=== PATIENT | female | born 1995 | race Caucasian/White ===

== ENCOUNTER 2023-10-23 13:26 | Outpatient (OUT) | payer MEDICAID, SELFPAY ==
--- NOTE | 2023-10-23 | US_ITS ---
[address] [address] Patient Name: VITO WHEAT MRN: [id number] date: 1995 Sex: F Assigned Patient Location: US Current Patient Location: US Accession/Order Number: [id number] Exam Date: 10/23/2023 13:28 Report Date: 10/23/2023 15:00 At the request of: CORA PEACE Procedure: US OB transvaginal EXAMINATION: US OB transvaginal HISTORY: MISSED MENSES COMPARISON: No relevant comparison available. FINDINGS: Lugo intrauterine gestation Gestational sac: 5.2 cm, 11 weeks 0 days CRL: 4.6 cm, 11 weeks 3 days Yolk sac: 3.6 mm Heart rate: 176 bpm The uterus is normal, anteflexed The ovaries are normal The cervix is closed measuring 4.0 cm Clinical age: 10 weeks 4 days Clinical NICOLE: 05/16/2024 Ultrasound age: 11 weeks, 3 days Clinical NICOLE: 05/10/2024 US/US OB transvaginal IMPRESSION: Viable lugo intrauterine gestation measuring 11 weeks 3 days Electronically authenticated by: JIMBO LEMON Date: 10/23/2023 15:00
--- OUTSIDE RECORDS SUMMARY | 2023-11-05 03:32 | XMS_ITS | CCD ---
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 Name Role Phone DayAlmasChristiane Unavailable Medications Current Medications Medication Drug Class(es) Dates Sig (Normalized) Sig (Original) amoxicillin 875 mg oral tablet (1 source) Penicillin-class Antibacterial Start: 11-21-2022 take 1 tablet by mouth every twelve hours Amoxicillin 875 MG 1 tablet Orally every 12 hrs for 7 days Nov, Active Problems Problem Classification Problem Date Documented Da te Episodic/Chronic Chronic obstructive pulmonary disease and bronchiectasis (1 source) Bronchitis, not specified as acute or chronic Episodic Immunizations and screening for infectious disease (2 sources) Contact with and (suspected) exposure to other viral communicable diseases; Translations: [Contact with and (suspected) exposure to other viral communicable diseases] Episodic Otitis media and related conditions (1 source) Otitis media, unspecified, left ear Episodic Results Test Name Value Interpretation Reference Range Facil ity COVID + FLU Quick Testingon 11-21-2022 SARS-CoV-2 (COVID-19) RNA NA A+probe Ql (Unsp spec) Negative [facility] [employer] Other COVID + FLU Quick Testing Negative [facility] Other Quick Strepon 11-21-2022 S. pyogenes Org specific cx Ql (Throat) Negative [facility] [employer] Other Quick Strep [facility] Other Vital Signs Date Time Vital Sign Value Performing Clinician Facility 11-21-2022 18:45-0500 Body height 165.1 cm Christiane Bernstein Other [facility] Other 11-21-2022 18:45-0500 Body mass index (BMI) [Ratio] 23.29 kg/m2 Christiane Bernstein Other [facility] Other 11-21-2022 18:45-0500 Body temperature 98 [degF] Christiane Bernstein Other [facility] Other 11-21-2022 18:45-0500 Body weight 63.5 kg Christiane Bernstein Other [facility] Other 11-21-2022 18:45-0500 Diastolic blood pressure 82 mm[Hg] Christiane Stevensonault Other [facility] Other 11-21-2022 18:45-0500 Respiratory rate 16 /min Christiane Stevensonault Other [facility] Other 11-21-2022 18:45-0500 SaO2% (BldA) [Mass fraction] 100 % Christiane Bernstein Other [facility] Other 11-21-2022 18:45-0500 Systolic blood pressure 114 mm[Hg] Christiane Stevensonault Other [facility] Other Encounters Encounter Date Encounter Type Care Provider Facility Start: 10-23-2023 End: 10-23-2023 ambulatory Not Available Start: 11-21-2022 End: 11-21-2022 ambulatory Christiane Bernstein Other [facility] Other Start: 11-21-2022 Office outpatient visit 25 minutes Christiane Day [facility] Payers Date Payer Category Payer Medicaid [id number] 1995 Unknown [id number] Social History Date Type Detail Facility Sex Assigned At [facility] Other Evaluation note 11-21-2022 Note Date & Type Note Facility 11-21-2022 Evaluation note Encounter Date Diagnosis Assessment Notes Nov, Contact with and (suspected) exposure to other viral communicable diseases (ICD-10 - Z20.828) Nov, Left acute otitis media (ICD-10 - H66.92) Ear infections are often a secondary infection caused from an URI, the flu or allergies. Take medication as directed. Complete all doses, even if you feel better. Tylenol or ibuprofen can help with pain. Warm pack to area for comfort helps as well. Follow up with primary care provider if no improvement of symptoms. Nov, Bronchitis (ICD-10 - J40) Take medications as directed. Rest and increase fluid intake. Take meds with food to prevent stomach upset. Use inhaler as needed for coughing spells and SOB. It is better to use inhaler a few times a day over the next 2-3 days. Follow up with primary care provider if symptoms do not improve with treatment plan, although it may take a few weeks for the cough to go away [facility] Other Summary Purpose Family History No Family History Records Found Advance Directives No Advanced Directives Records Found Additional Source Comments REASON FOR VISIT (unrecogniz ed section and content) CONGESTION SORE THROAT COUGH INFORMATION SOURCE (unrecogn ized section and content) DATE CREATED AUTHOR 10/25/2023 [facility] dicma Specialists [facility] FOR RECORDS PERTAINING TO PATIENTS WHO ARE OR HAVE BEEN ENROLLED IN A CHEMICAL DEPENDENCY/SUBSTANCEABUSE PROGRAM, SOME INFORMATION MAY BE OMITTED. This clinical summary was aggregated from multiple sources. Caution should be exercised in using it in the provision of clinical care. This summary normalizes information from multiple sources, and as a consequence, information in this document may materially change the coding, format and clinical context of patient data. In addition, data may be omitted in some cases. CLINICAL DECISIONS SHOULD BE BASED ON THE PRIMARY CLINICAL RECORDS. [facility] [employer] provides no warranty or guarantee of the accuracy or completeness of information in this document.
== END 2023-10-23 13:27 | disposition home or self-care (01) ==
LOC: US 13:27
PROVIDERS: Visit Provider Obstetrics & Gynecology
DX: Z34.91 Encounter for supervision of normal pregnancy, unspecified, first trimester (principal); N92.6 Irregular menstruation, unspecified; Z3A.11 11 weeks gestation of pregnancy
CPT/HCPCS: 76817

== ENCOUNTER 2023-10-27 12:42 | Outpatient (OUT) | payer MEDICAID, SELFPAY ==
[2023-10-27 13:18] LABS: BOX Test Sent Out Y
[2023-10-27 13:21] LABS: Basophils Absolute Auto 0.1 10^3/uL (0.0-0.1); Basophils Percent Auto 0.5 % (0.2-2.0); Eosinophils Absolute Auto 0.1 10^3/uL (0.0-0.7); Hemoglobin 12.5 g/dL (12.0-16.0); Immature Granulocytes Abs Auto 0.02 10^3/uL (0.00-0.03); Immature Granulocytes Pct Auto 0.2 % (0.0-0.5); Lymphocytes Absolute Auto 2.5 10^3/uL (1.2-3.8); Lymphocytes Percent Auto 25.1 % (20.5-60.0); Mean Corpuscular HGB Conc 32.9 g/dL (29.9-35.2); Mean Corpuscular Hemoglobin 30.8 pg (26.7-34.0); Mean Corpuscular Volume 93.6 fL (81.0-99.0); Mean Platelet Volume 11.4 fL (9.5-13.5); Monocytes Absolute Auto 0.4 10^3/uL (0.3-0.8); Monocytes Percent Auto 3.7 % (1.7-12.0); Neutrophils Absolute Auto 7.1 10^3/uL (1.4-6.5); Neutrophils Percent Auto 69.5 % (43.0-75.0); Platelet Count 217 10^3/uL (150-450); Red Blood Count 4.06 10^6/uL (4.20-5.40); Red Cell Distribution Width 12.5 % (11.0-15.0); White Blood Count 10.1 10^3/uL (4.0-11.0)
[2023-10-27 13:45] LABS: Estimated Average Glucose 85 mg/dL; Glycohemoglobin A1C 4.6 % (4.5-6.2)
[2023-10-27 13:55] LABS: Thyroid Stimulating Hormone 1.066 uIU/mL (0.358-3.740)
[2023-10-28 08:13] LABS: HBsAg Screen Negative (Negative)
[2023-10-28 09:11] LABS: HCV Ab Non Reactive (Non Reactive); Rubella Antibodies, IgG 6.43 index (Immune >0.99)
[2023-10-28 12:09] LABS: HIV Ab/p24 Ag Screen Non Reactive (Non Reactive)
[2023-10-28 13:08] LABS: Rapid Plasma Reagin, Quant Non Reactive titer (NonRea<1:1)
== END 2023-10-27 12:43 | disposition home or self-care (01) ==
LOC: LAB 12:42
PROVIDERS: Visit Provider Obstetrics & Gynecology
DX: N92.6 Irregular menstruation, unspecified (principal); Z36.0 Encounter for antenatal screening for chromosomal anomalies
CPT/HCPCS: 36415; 83036; 84443; 85025; 86592; 86762; 86803; 86850; 86900; 86901; 87086; 87340; 87389

== ENCOUNTER 2023-11-25 19:25 | Outpatient (REF) | payer MEDICAID, SELFPAY ==
--- OUTSIDE RECORDS SUMMARY | 2023-11-25 19:28 | XMS_ITS | CCD ---
Author Name Unknown Address [address] [facility] [address] [place] [address] Organization [facility] Care Team Providers Care Aluminizer Name Role Phone DayAlmasChristiane Unavailable Medications Current [...] FLU Quick Testingon 11-21-2022 SARS-CoV-2 (COVID-19) RNA DANNA+probe Ql (Unsp spec) Negative [facility] [employer] Other COVID + FLU Quick Testing Negative [facility] [employer] Other Quick Strepon 11-21-2022 S. pyogenes Org specific cx Ql (Throat) Negative [facility] [employer] Other Quick Strep [facility] [employer] Other Vital Signs Date Time Vital Sign Value Performing Clinician Facility 11-21-2022 18:45-0500 Body height 165.1 cm Christiane Bernstein Other [address] Other 11-21-2022 18:45-0500 Body mass index (BMI) [Ratio] 23.29 kg/m2 Christiane Bernstein Other [address] Other 11-21-2022 18:45-0500 Body temperature 98 [degF] Christiane Stevensonault Other [address] Other 11-21-2022 18:45-0500 Body weight 63.5 kg Christiane Stevensonault Other [address] Other 11-21-2022 18:45-0500 Diastolic blood pressure 82 mm[Hg] Christiane Stevensonault Other [address] Other 11-21-2022 18:45-0500 Respiratory rate 16 /min Christiane Stevensonault Other [address] Other 11-21-2022 18:45-0500 SaO2% (BldA) [Mass fraction] 100 % Christiane Stevensonault Other [address] Other 11-21-2022 18:45-0500 Systolic blood pressure 114 mm[Hg] Christiane Stevensonault Other [address] Other Encounters Encounter Date Encounter Type Care Provider Facility Start: 10-23-2023 End: 10-23-2023 ambulatory Not Available Start: 11-21-2022 End: 11-21-2022 ambulatory Christiane Stevensonault Other [address] Other Start: 11-21-2022 Office outpatient visit 25 minutes Christiane Day [facility] Payers Date Payer Category Payer Medicaid [id number] 1995 Unknown [id number] Social History Date Type Detail Facility Sex Assigned At [address] Other Evaluation note 11-21-2022 Note Date & [...] weeks for the cough to go away [facility] [address] Other Summary Purpose Family History No Family History Records Found Advance Directives No Advanced Directives Records Found Additional Source Comments REASON FOR VISIT (unrecogniz ed section and content) CONGESTION SORE THROAT COUGH INFORMATION SOURCE (unrecogn ized section and content) DATE CREATED AUTHOR 10/25/2023 [facility] dicnh Specialists [facility] FOR RECORDS PERTAINING TO PATIENTS WHO [...] BE BASED ON THE PRIMARY CLINICAL RECORDS. [facility] [employer] provides no warranty or guarantee of the accuracy or completeness of information in this document.
[2023-12-01 13:11] LABS: Age Gdln ACOG Testing Note (.); IGP, rfx Aptima HPV ASCU Note (.)
== END 2023-11-25 19:26 | disposition home or self-care (01) ==
LOC: LAB 19:25
PROVIDERS: Visit Provider Obstetrics & Gynecology
DX: Z01.419 Encounter for gynecological examination (general) (routine) without abnormal findings (principal)
CPT/HCPCS: G0145

== ENCOUNTER 2023-12-08 10:47 | Outpatient (OUT) | payer MEDICAID, SELFPAY ==
--- OUTSIDE RECORDS SUMMARY | 2023-12-08 10:54 | XMS_ITS | CCD ---
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 Name Role Phone Christiane Bernstein Unavailable CORA PEACE Attending Unavailable KAILEE YOUNGBLOOD Primary Care Unavailable MARIKA MCELROY Attending Unavailable Medications Current Medications Medication Drug Class(es) [...] exposure to other viral communicable diseases] Episodic Influenza (1 source) Influenza due to other identified influenza virus with other respiratory manifestations; Translations: [Influenza due to other identified influenza virus with other respiratory manifestations] Onset: 11-28-2023 Episodic Otitis media and related conditions (1 source) Otitis media, unspecified, left ear Episodic Unclassified (1 source) Cold Like Symptoms Onset: 11-28-2023 Unclassified (1 source) Cough, Congestion Onset: 11-28-2023 Results Test Name Value Interpretation Reference Range Facil ity SARS/FLU A+B/RSV by NAAT/Mol ecularon 11-28-2023 SARS/FLU A+B/RSV by NAAT/Molecular FLU A PCR Negative (qualifier value) FLU B PCR Positive (qualifier value) RSV by PCR Negative (qualifier value) SARS CoV 2 Not detected (qualifier value) NOTE The Xpert Xpress SARS-CoV-2/Flu/RSV Plus test is a rapid, multiplexed real-time RT-PCR test intended for the simultaneous qualitative detection and differentiation of SARS-CoV-2, influenza A, influenza B and respiratory syncytial virus (RSV) viral RNA from individuals suspected of respiratory viral infection consistent with COVID-19 by their healthcare provider. This test has not been validated in asymptomatic patients. The Xpert Xpress SARS-CoV-2 test is intended for use by qualified and trained operators who are performing tests using either [employer] or [employer] systems and is limited to laboratories that meet the CLIA requirements to perform high and moderate complexity tests. The Xpert Xpress SARS-CoV-2/Flu/RSV Plus is only for use under the Food and Drug Administration's Emergency Use Authorization. Results are for the simultaneous detection and differentiation of SARS-CoV-2, influenza A, influenza B and RSV nucleic acids in clinical specimens. SARS-CoV-2, influenza A, influenza B and RSV RNA identified by this test are generally detectable in upper respiratory samples during the acute phase of infection. Positive results are indicative of the presence of the identified virus, but do not rule out bacterial infection or co-infection with other pathogens not detected by this test. Clinical correlation with patient history and other diagnostic information is necessary to determine patient infection status. The agent detected may not be the definite cause of disease. Negative results do not preclude SARS-CoV-2, influenza A, influenza B and RSV infection and should not be used as the sole basis for treatment or other patient management decisions. Negative results must be combined with clinical observations, patient history and epidemiological information. An Invalid result may occur with specimen-associated inhibition unable to be resolved with specimen repeat. Fact Sheet for Healthcare Providers: https://www.fda.gov/m edia/278576/download Fact Sheet for Patients: https://www.fda.gov/m edia/895916/download Normal [facility] Comment on above: Performed By: #### COVFLR #### [facility] ([id number]) [address] [place] [address], [place] [address] COVID + FLU Quick Testingon 11-21-2022 SARS-CoV-2 (COVID-19) RNA DANNA+probe Ql (Unsp spec) Negative [employer] Other COVID + FLU Quick Testing Negative [employer] Other Quick Strepon 11-21-2022 S. pyogenes Org specific cx Ql (Throat) Negative [employer] Other Quick Strep [employer] Other Vital Signs Date Time Vital Sign Value Performing Clinician Facility 11-21-2022 18:45-0500 Body height 165.1 cm Christiane Stevensonault Other [employer] Other 11-21-2022 18:45-0500 Body mass index (BMI) [Ratio] 23.29 kg/m2 Christiane Day Other [employer] Other 11-21-2022 18:45-0500 Body temperature 98 [degF] Christiane Day Other [employer] Other 11-21-2022 18:45-0500 Body weight 63.5 kg Christiane Stevensonault Other [employer] Other 11-21-2022 18:45-0500 Diastolic blood pressure 82 mm[Hg] Christiane Day Other [employer] Other 11-21-2022 18:45-0500 Respiratory rate 16 /min Christiane Day Other [employer] Other 11-21-2022 18:45-0500 SaO2% (BldA) [Mass fraction] 100 % Christiane Day Other [employer] Other 11-21-2022 18:45-0500 Systolic blood pressure 114 mm[Hg] Christiane Bernstein Other [employer] Other Encounters Encounter Date Encounter Type Care Provider Facility Start: 11-28-2023 End: 11-28-2023 Emergency department patient visit KAILEE YOUNGBLOOD [facility] Start: 11-25-2023 End: 11-25-2023 ambulatory CORA BELCHERO Not Available Start: 10-23-2023 End: 10-23-2023 ambulatory CORA NATA Not Available Start: 11-21-2022 End: 11-21-2022 ambulatory Christiane Day Other [employer] Other Start: 11-21-2022 Office outpatient visit 25 minutes Christiane Bernstein [facility] Payers Date Payer Category Payer Medicaid [id number] 1995 Unknown [id number] 1995 Unknown [id number] 1995 Unknown [id number] Social History Date Type Detail Facility Sex Assigned At [facility] [employer] Other Evaluation note 11-21-2022 Note Date & [...] weeks for the cough to go away [employer] Other Summary Purpose Family History No Family History Records FoundNo Family History Records Found Advance Directives No Advanced Directives Records FoundNo Advanced Directives Records Found Additional Source Comments REASON FOR VISIT (unrecogniz ed section and content) CONGESTION SORE THROAT COUGH INFORMATION SOURCE (unrecogn ized section and content) DATE CREATED AUTHOR 11/26/2023 [facility] dical Specialists EPIC DATE CREATED AUTHOR AUTHOR'S ORGANIZ ATION 11/30/2023 [facility] FOR RECORDS PERTAINING TO PATIENTS WHO ARE [...] BE BASED ON THE PRIMARY CLINICAL RECORDS. [employer] provides no warranty or guarantee of the accuracy or completeness of information in this document.
[2023-12-10 00:07] LABS: AFP Value 53.1 ng/mL (.); Gestat. Age Based On As provided (.); Insulin Dep Diabetes No (.); Maternal Age At EDD 26.6 yr (.); OSBR Risk 1 IN 8106 (.); Results Report (.)
== END 2023-12-08 10:48 | disposition home or self-care (01) ==
LOC: LAB 10:50
PROVIDERS: Visit Provider Obstetrics & Gynecology
DX: Z34.92 Encounter for supervision of normal pregnancy, unspecified, second trimester (principal)
CPT/HCPCS: 36415; 82105

== ENCOUNTER 2024-01-10 06:50 | Emergency (ER) | payer MEDICAID, SELFPAY ==
[2024-01-10 06:58] VITALS: BP 114/77; PULSE 85; RESP 18; TEMP 36.9; O2SAT 98; BMI 24.0
--- OUTSIDE RECORDS SUMMARY | 2024-01-10 06:58 | XMS_ITS | CCD ---
Author Name Unknown Address [address] [place] [address] Organization [facility] Care Team Providers Care Relief Charge Nurse Name Role Phone Christiane Bernstein Unavailable KAILEE YOUNGBLOOD Primary Care Unavailable MARIKA MCELROY Attending Unavailable CORA LINDSAY Attending Unavailable CAMILLE TRAN Attending Unavailable Unavailable Primary Care Provider Unavailabl e Medications Current Medications Medication Drug Class(es) Dates [...] with other respiratory manifestations] Onset: 11-28-2023 Episodic Other and delivery including normal (2 sources) Second trimester ; Translations: [Encounter for supervision of normal , unspecified, second trimester] 12-18-2023 Episodic Other screening for suspected conditions (not mental disorders or infectious disease) (2 sources) Patient encounter status; Translations: [Encounter for screening for diabetes mellitus] 12-24-2023 Episodic Otitis media and related conditions (1 source) Otitis media, unspecified, left ear Episodic Unclassified (1 source) Cold Like Symptoms Onset: 11-28-2023 Unclassified (1 source) Cough, Congestion Onset: 11-28-2023 Results Test Name Value Interpretation Reference Range Facility Urinalysis macro (dipstick) panel (U)on 12-24-2023 Bilirubin, UA Negative Negative - 4(70) +++ mg/dL [facility] Blood, UA Negative Negative - 50 Eloy/mcL [facility] Clarity, UA Clear [facility] re Color, UA Yellow [facility] e Glucose, UA Negative Negative - 1999(110) ++++ mg/dL [facility] Interpretation and review of laboratory results Normal [facility] re Ketones, UA Negative Negative - 160(16) ++++ mg/dL [facility] Leukocytes, UA Negative Negative - 500+++ Srinivas/mcL [facility] Nitrite, UA Negative Negative - Positive [facility] pH, UA 5.5 5 - 9 [facility] e Protein, UA Negative Negative - 1999(20) ++++ mg/dL [facility] Spec Grav, UA 1.030 1 - 1.03 [facility] Urobilinogen, UA 0.2 0.2 - 12 mg/dL [facility] e SARS/FLU A+B/RSV by NAAT/Mol ecularon 11-28-2023 SARS/FLU [...] operators who are performing tests using either [address] or [employer] systems and is limited to laboratories that [...] specimen repeat. Fact Sheet for Healthcare Providers: https://www.fda.gov/ media/886564/downloa d Fact Sheet for Patients: https://www.fda.gov/ media/301459/downloa d Normal [facility] Comment on above: Performed By: #### C OVFLR #### [facility] ([id number]) [address] [place] [address], [place] [address] COVID + FLU Quick Testingon 11-21-2022 SARS-CoV-2 (COVID-19) RNA DANNA+probe Ql (Unsp spec) Negative [facility] Other COVID + FLU Quick Testing Negative [facility] Other Quick Strepon 11-21-2022 S. pyogenes Org specific cx Ql (Throat) Negative [facility] [place] Other Quick Strep [facility] Other Vital Signs Date Time Vital Sign Value Performing Clinician Facility 12-24-2023 09:36-0500 Body weight 65.68 kg Camille QUEEN Work Phone: [facility] 12-24-2023 09:36-0500 Diastolic blood pressure 60 mm[Hg] Camille QUEEN Work Phone: [facility] 12-24-2023 09:36-0500 Systolic blood pressure 110 mm[Hg] Camille QUEEN Work Phone: [facility] 11-21-2022 18:45-0500 Body height 165.1 cm Christiane Bernstein Other [facility] Other 11-21-2022 18:45-0500 Body mass index (BMI) [Ratio] 23.29 kg/m2 Christiane Bernstein Other [facility] Other 11-21-2022 18:45-0500 Body temperature 98 [degF] Christiane Bernstein Other [facility] Other 11-21-2022 18:45-0500 Body weight 63.5 kg Christiane Bernstein Other [facility] Other 11-21-2022 18:45-0500 Diastolic blood pressure 82 mm[Hg] Christiane Bernstein Other [facility] Other 11-21-2022 18:45-0500 Respiratory rate 16 /min Christiane Bernstein Other [facility] Other 11-21-2022 18:45-0500 SaO2% (BldA) [Mass fraction] 100 % Christiane Bernstein Other [facility] Other 11-21-2022 18:45-0500 Systolic blood pressure 114 mm[Hg] Christiane Bernstein Other [facility] Other Encounters Encounter Date Encounter Type Care Provider Facility Start: 12-24-2023 End: 12-24-2023 ambulatory CAMILLE TRAN Not Available Start: 12-24-2023 End: 12-24-2023 Office outpatient visit 15 minutes Camille QUEEN Work Phone: [facility] Comment on above: Second trimester pre gnancy; Diabetes mellitus screening Start: 11-28-2023 End: 11-28-2023 Emergency department patient visit KAILEE YOUNGBLOOD [facility] Start: 11-25-2023 End: 11-25-2023 ambulatory CORA NATA Not Available Start: 10-23-2023 End: 10-23-2023 ambulatory CORA NATA Not Available Start: 11-21-2022 End: 11-21-2022 ambulatory Christiane Bernstein Other [facility] Other Start: 11-21-2022 Office outpatient visit 25 minutes Christiane Bernstein [facility] Procedures Date Procedure Procedure Detail Performing Clinician Start: 12-24-2023 Urnls dip stick/tabl et rgnt non-auto w/o micrscp Camille QUEEN Work Phone: Plan of Treatment Date Care Activity Detail Author Start: 01-21-2024 End: 01-21-2024 Patient encounter procedure 01/21/2024 10:40 AM EST Routine [facility] [address] [place] [id number] Cora Lindsay, DO [address] [place] [address] [facility] Start: 01-21-2024 End: 01-21-2024 Professional / ancillary services management 01/21/2024 9:30 AM EST Ancillary Procedure [facility] [address] [place] [address] [facility] Start: 12-24-2023 End: 12-24-2024 CBC panel - Blood by Automated count CBC Lab Routine Diabetes mellitus screening Expected: 12/24/2023 (Approximate), Expires: 12/24/2024 [facility] Work Phone: Comment on above: Expected: 12/24/2023 (Approximate), Expires: 12/24/2024 Start: 12-24-2023 End: 12-24-2024 Measurement of glucose 1 hour after glucose challenge for glucose tolerance test Glucose tolerance, 1 hour Lab Routine Diabetes mellitus screening Expected: 12/24/2023 (Approximate), Expires: 12/24/2024 [facility] Comment on above: Expected: 12/24/2023 (Approximate), Expires: 12/24/2024 Start: 07-18-2023 Influenza vaccination Influenz a Vaccine (#1) [facility] Healthcare Payers Date Payer Category Payer Medicaid [id number] 2023 Medicaid MEDICAID [facility] [id number] 2023-Present [phone] [address] [place] [address] Medicaid [id number] 1995 Unknown [id number] 1995 Unknown [id number] 1995 Unknown [id number] 1995 Unknown [id number] Social History Date Type Detail Facility Sex Assigned At [facility] Other Tobacco smoking status WAIS Tobacco smoking consumption unknown [facility] Start: 08-18-2023 [facility] Start: 1995 Sex Assigned At Not on file [facility] History of Present illness Narrative 12-24-2023 BERNICE Navarro - 12/24/2023 9:30 AM EST Note Date & Type Note Facility 12-24-2023 History of Presen t illness Narrative Reason for Appointment: Patient ID: Shadi Wheat is a 28 y.o. female who presents for Routine Visit Patient presents today for Return OB appointment. Patient presents today for a routine obstetrics appointment. Patient is currently 20w2d with a Estimated Date of Delivery: 05/10/24. Current Medications: currently has no medications in their medication list. Medical History: Active Ambulatory Problems Diagnosis Date Noted No Active Ambulatory Problems Resolved Ambulatory Problems Diagnosis Date Noted No Resolved Ambulatory Problems No Additional Past Medical History No family history on file. Social History Tobacco Use Smoking status: Not on file Smokeless tobacco: Not on file Substance Use Topics Alcohol use: Not on file Drug use: Not on file History reviewed. No pertinent surgical history. No Known Allergies Review of Systems: Review of Systems Constitutional: Negative. HENT: Negative. Eyes: Negative. Respiratory: Negative. Cardiovascular: Negative. Gastrointestinal: Negative. Genitourinary: Negative. Musculoskeletal: Negative. Skin: Negative. Neurological: Negative. All other systems reviewed and are negative. Hematological: Negative. Endocrine: Negative. Allergic/Immunologic: Negative. Objective Physical Exam Constitutional: Appearance: Normal appearance. She is normal weight. HENT: Head: Normocephalic. Cardiovascular: Rate and Rhythm: Normal rate. Pulses: Normal pulses. Pulmonary: Effort: Pulmonary effort is normal. Breath sounds: Normal breath sounds. Abdominal: Palpations: Abdomen is soft. Musculoskeletal: General: Normal range of motion. Neurological: General: No focal deficit present. Mental Status: She is alert and oriented to person, place, and time. Psychiatric: Mood and Affect: Mood normal. Behavior: Behavior normal. Thought Content: Thought content normal. Judgment: Judgment normal. Vitals and nursing note reviewed. Vitals: There is no height or weight on file to calculate BMI. BP: 110/60 Patient's last menstrual period was 08/10/2023. Assessment/Plan Encounter Diagnoses Name Primary? Second trimester Diabetes mellitus screening Patient presents today for a routine obstetrics appointment. Patient is currently 20w2d . Patient states she is doing well but has complaints of being tired due to current . Patient has verbalizes frequent movement. labor precautions was discussed/given 4 Glucose and cbc order given today as well Follow Up: Patient is to return to office in 4 week for routine OB appointment. Documented by BERNICE Navarro on behalf of: BERNICE Navarro documented in this encounter [facility] Evaluation note 01-05-2023 Note Date & Type Note Facility 11-21-2022 [...] weeks for the cough to go away [facility] Other Evaluation note Note Date & Type Note Facility Evaluation note Diagnosis Second trimester state, incidental Diabetes mellitus screening Screening for diabetes mellitus documented in this encounter [facility] Summary Purpose Family History No Family History Records FoundNo Family History Records Found Advance Directives No Advanced Directives Records FoundNo Advanced Directives Records Found Additional Source Comments REASON FOR VISIT (unrecogniz ed section and content) Reason Comments Routine Visit INFORMATION SOURCE (unrecogn ized section and content) DATE CREATED AUTHOR 11/30/2023 [facility] DATE CREATED AUTHOR AUTHOR'S ORGANIZ ATION 12/25/2023 [facility] FOR RECORDS PERTAINING TO PATIENTS WHO [...] BE BASED ON THE PRIMARY CLINICAL RECORDS. [employer] provides no warranty or guarantee of the accuracy or completeness of information in this document.
--- NOTE | 2024-01-10 07:17 | CT_ITS ---
The [address] [address] Patient Name: VITO WHEAT MRN: [id number] date: 1995 Sex: F Assigned Patient Location: ER Current Patient Location: ER Accession/Order Number: [id number] Exam Date: 01/10/2024 07:28 Report Date: 01/10/2024 07:53 At the request of: CLARISSA ZEE Procedure: CT head/brain wo con EXAMINATION: CT head/brain wo con HISTORY: trauma COMPARISON: No relevant comparison available. TECHNIQUE: Axial CT images were obtained without IV contrast. Dose reduction techniques were achieved by using automated exposure control and/or adjustment of mA and/or kV according to patient size and/or use of iterative reconstruction technique. FINDINGS: BRAIN: No edema, hemorrhage, mass, acute infarction, or inappropriate atrophy. CSF SPACES: No hydrocephalus, subarachnoid hemorrhage, or mass. Appropriate for age. SKULL: No fracture, mass, or other significant visible lesion. SINUSES: No significant mucosal thickening or fluid on the limited views. ORBITS: No appreciable abnormality on the limited views. OTHER: Mild subcutaneous bruising/edema overlying right forehead. No radiopaque foreign body. CT/CT head/brain wo con IMPRESSION: 1. No intracranial hemorrhage or suspicious abnormality of the brain. 2. Mild right forehead subcutaneous bruising/edema. 3. No fracture of the calvarium. Electronically authenticated by: ZANE ZAMORA Date: 01/10/2024 07:53
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
[2024-01-10 07:48] VITALS: BP 124/79; PULSE 78; RESP 18; O2SAT 98
== END 2024-01-10 08:25 | disposition home or self-care (01) ==
PROVIDERS: Emergency Provider Emergency Medicine Emergency Medical Services
DX: O9A.212 Injury, poisoning and certain other consequences of external causes complicating pregnancy, second trimester (principal); S09.8XXA Other specified injuries of head, initial encounter; Z3A.20 20 weeks gestation of pregnancy; V49.49XA Driver injured in collision with other motor vehicles in traffic accident, initial encounter
CPT/HCPCS: 70450; 99284

== ENCOUNTER 2024-01-21 09:28 | Outpatient (OUT) | payer MEDICAID, SELFPAY ==
--- NOTE | 2024-01-21 09:33 | US_ITS ---
[address] [address] Patient Name: VITO WHEAT MRN: [id number] date: 1995 Sex: F Assigned Patient Location: [facility] Current Patient Location: [facility] Accession/Order Number: [id number] Exam Date: 01/21/2024 09:33 Report Date: 01/21/2024 11:04 At the request of: CORA PEACE Procedure: US OB anatomy EXAMINATION: US OB anatomy, US OB cervical length HISTORY: ANATOMY COMPARISON: No relevant comparison available. TECHNIQUE: Transabdominal sonographic examination was performed for obstetrical and evaluation. FINDINGS: Number: 1 Heart Rate: 148.0 bpm H.B. /min Amniotic Fluid Volume: Subjectively normal position: Cephalic presentation, longitudinal lie Placental Location: POSTERIOR , the placental edge is 0.8 cm from the internal os Cervix Length: 4 cm , closed Normal anatomy: Lateral ventricles, cerebellum, posterior fossa, nose, lips, orbits, four-chamber heart, RVOT, LVOT, diaphragm, stomach, kidneys, abdominal cord insertion, bladder, umbilical arteries, three-vessel cord, spine, extremities BIOMETRY: BPD: 5.6 cm 23 weeks 1 days , 11% HC: 21.3 cm 23 weeks 2 days, 7% AC: 19.1 cm 23 weeks 6 days, 26% FL: 4.4 cm 24 weeks 3 days , 40% EFW:643.9 grams; 1 lb, 7 oz, 26% FL/AC: 23.0 FL/BPD: 77.8 HC/AC: 1.1 GESTATIONAL AGE: Age by EDC: 24 weeks 2 days Age by current US: 23 weeks 5 days NICOLE by current US: 04/24/24 NICOLE by EDC: 05/10/24 US/US OB anatomy IMPRESSION: Normal anatomy scan *Reference: [facility] Practice Guideline for the performance of Obstetric Ultrasound Examinations, August 17, 2007. Electronically authenticated by: JIMBO LEMON Date: 01/21/2024 11:04
--- NOTE | 2024-01-21 09:33 | US_ITS ---
[address] [address] Patient Name: VITO WHEAT MRN: [id number] date: 1995 Sex: F Assigned Patient Location: [facility] Current Patient Location: [facility] Accession/Order Number: [id number] Exam Date: 01/21/2024 09:33 Report Date: 01/21/2024 11:04 At the request of: CORA PEACE Procedure: US OB cervical length EXAMINATION: US OB anatomy, US OB cervical length HISTORY: ANATOMY COMPARISON: No relevant comparison available. TECHNIQUE: Transabdominal sonographic examination was performed for obstetrical and evaluation. FINDINGS: Number: 1 Heart Rate: 148.0 bpm H.B. /min Amniotic Fluid Volume: Subjectively normal position: Cephalic presentation, longitudinal lie Placental Location: POSTERIOR , the placental edge is 0.8 cm from the internal os Cervix Length: 4 cm , closed Normal anatomy: Lateral ventricles, cerebellum, posterior fossa, nose, lips, orbits, four-chamber heart, RVOT, LVOT, diaphragm, stomach, kidneys, abdominal cord insertion, bladder, umbilical arteries, three-vessel cord, spine, extremities BIOMETRY: BPD: 5.6 cm 23 weeks 1 days , 11% HC: 21.3 cm 23 weeks 2 days, 7% AC: 19.1 cm 23 weeks 6 days, 26% FL: 4.4 cm 24 weeks 3 days , 40% EFW:643.9 grams; 1 lb, 7 oz, 26% FL/AC: 23.0 FL/BPD: 77.8 HC/AC: 1.1 GESTATIONAL AGE: Age by EDC: 24 weeks 2 days Age by current US: 23 weeks 5 days NICOLE by current US: 04/24/24 NICOLE by EDC: 05/10/24 US/US OB cervical length IMPRESSION: Normal anatomy scan *Reference: [facility] Practice Guideline for the performance of Obstetric Ultrasound Examinations, August 17, 2007. Electronically authenticated by: JIMBO LEMON Date: 01/21/2024 11:04
--- OUTSIDE RECORDS SUMMARY | 2024-01-21 09:40 | XMS_ITS | CCD ---
Author Name Unknown Address [address] [place] [address] Organization [facility] Care Team Providers Care Flame Degreaser Name Role Phone Christiane Bernstein Unavailable KAILEE [...] UA Negative Negative - 4(70) +++ mg/dL [facility] Blood, UA Negative Negative - 50 Eloy/mcL [facility] Clarity, UA Clear [facility] re Color, UA Yellow [facility] Glucose, UA Negative Negative - 1999(110) ++++ mg/dL [facility] Interpretation and review of laboratory results Normal [facility] re Ketones, UA Negative Negative - 160(16) ++++ mg/dL [facility] Leukocytes, UA Negative Negative - 500+++ Srinivas/mcL [facility] Nitrite, UA Negative Negative - Positive [facility] pH, UA 5.5 5 - 9 [facility] e Protein, UA Negative Negative - 1999(20) ++++ mg/dL [facility] Spec Grav, UA 1.030 1 - 1.03 [facility] Urobilinogen, UA 0.2 0.2 - 12 mg/dL [facility] SARS/FLU A+B/RSV by NAAT/Mol [...] operators who are performing tests using either [employer] or [employer] systems and is limited to laboratories that [...] repeat. Fact Sheet for Healthcare Providers: https://www.fda.gov/ media/793114/downloa d Fact Sheet for Patients: https://www.fda.gov/ media/609048/downloa d Normal [facility] Comment on above: Performed By: #### C OVFLR #### [facility] ([id number]) [address] [place] [address], [place] [address] COVID + FLU Quick Testingon 11-21-2022 SARS-CoV-2 (COVID-19) RNA DANNA+probe Ql (Unsp spec) Negative [facility] [employer] Other COVID + FLU Quick Testing Negative [employer] Other Quick Strepon 11-21-2022 S. pyogenes Org specific cx Ql (Throat) Negative [employer] Other Quick Strep [employer] Other Vital Signs Date Time Vital Sign Value Performing Clinician Facility 12-24-2023 09:36-0500 Body weight 65.68 kg Camille QUEEN Work Phone: [facility] 12-24-2023 09:36-0500 Diastolic blood pressure 60 mm[Hg] Camille QUEEN Work Phone: [facility] 12-24-2023 09:36-0500 Systolic blood pressure 110 mm[Hg] Camille QUEEN Work Phone: [facility] 11-21-2022 18:45-0500 Body height 165.1 cm Christiane Bernstein Other [employer] Other 11-21-2022 18:45-0500 Body mass index (BMI) [Ratio] 23.29 kg/m2 Christiane Bernstein Other [employer] Other 11-21-2022 18:45-0500 Body temperature 98 [degF] Christiane Bernstein Other [employer] Other 11-21-2022 18:45-0500 Body weight 63.5 kg Christiane Bernstein Other [employer] Other 11-21-2022 18:45-0500 Diastolic blood pressure 82 mm[Hg] Christiane Bernstein Other [employer] Other 11-21-2022 18:45-0500 Respiratory rate 16 /min Christiane Bernstein Other [employer] Other 11-21-2022 18:45-0500 SaO2% (BldA) [Mass fraction] 100 % Christiane Bernstein Other [employer] Other 11-21-2022 18:45-0500 Systolic blood pressure 114 mm[Hg] Christiane Day Other [employer] Other Encounters Encounter Date Encounter Type Care Provider Facility Start: 12-24-2023 End: 12-24-2023 ambulatory CAMILLE TRAN Not Available Start: 12-24-2023 End: 12-24-2023 Office outpatient visit 15 minutes Camille QUEEN Work Phone: [facility] Comment on above: Second trimester pre gnancy; Diabetes mellitus screening Start: 11-28-2023 End: 11-28-2023 Emergency department patient visit KAILEE YOUNGBLOOD [facility] Start: 11-25-2023 End: 11-25-2023 ambulatory CORA BELCHERO Not Available Start: 10-23-2023 End: 10-23-2023 ambulatory CORA ALVARADOZIO Not Available Start: 11-21-2022 End: 11-21-2022 ambulatory Christiane Bernstein Other [facility] [employer] Other Start: 11-21-2022 Office outpatient visit 25 minutes Christiane Bernstein [facility] Procedures Date Procedure Procedure Detail Performing Clinician Start: 12-24-2023 Urnls dip stick/tabl et rgnt non-auto w/o micrscp Camille QUEEN Work Phone: Plan of Treatment Date Care Activity Detail Author Start: 01-21-2024 End: 01-21-2024 Patient encounter procedure 01/21/2024 10:40 AM EST Routine [facility] [address] [place] [id number] Cora Lindsay, [address] [place] [address] [facility] Start: 01-21-2024 End: 01-21-2024 Professional / ancillary services management 01/21/2024 9:30 AM EST Ancillary Procedure [facility] [address] [facility] [id number] [facility] Start: 12-24-2023 End: 12-24-2024 [...] mellitus screening Expected: 12/24/2023 (Approximate), Expires: 12/24/2024 [facility] Comment on above: Expected: 12/24/2023 (Approximate), Expires: 12/24/2024 Start: 07-18-2023 Influenza vaccination Influenz a Vaccine (#1) [facility] Healthcare Payers Date Payer Category Payer Medicaid [id number] 2023 Medicaid MEDICAID [facility] [id number] 2023-Present [phone] [address] [place] [address] Medicaid [id number] 1997 Unknown [id number] 1997 Unknown [id number] 1997 Unknown [id number] 1997 Unknown [id number] Social History Date Type Detail Facility Sex Assigned At [employer] Other Tobacco smoking status PAIS Tobacco smoking consumption unknown [facility] Healthcare Start: 08-18-2023 [facility] Start: 1995 Sex Assigned At Not on file N [facility] History of Present illness Narrative 12-24-2023 [...] of: BERNICE Navarro documented in this encounter [facility] Healthcare Evaluation note 11-21-2022 Note Date & Type [...] weeks for the cough to go away [employer] Other Evaluation note Note Date & Type [...] section and content) DATE CREATED AUTHOR 11/30/2023 [facility] DATE CREATED AUTHOR AUTHOR'S ORGANIZ ATION 12/25/2023 [facility] Specialists [facility] FOR RECORDS PERTAINING TO PATIENTS WHO [...] BE BASED ON THE PRIMARY CLINICAL RECORDS. [employer] [facility]. provides no warranty or guarantee of the accuracy or completeness of information in this document.
== END 2024-01-21 09:29 | disposition home or self-care (01) ==
LOC: NOMS 09:28
PROVIDERS: Visit Provider Obstetrics & Gynecology
DX: Z36.89 Encounter for other specified antenatal screening (principal); Z3A.24 24 weeks gestation of pregnancy
CPT/HCPCS: 76805; 76817

== ENCOUNTER 2024-02-02 08:44 | Outpatient (OUT) | payer MEDICAID, SELFPAY ==
--- OUTSIDE RECORDS SUMMARY | 2024-02-02 08:57 | XMS_ITS | CCD ---
Author Name Unknown Address [address] [place] [address] Organization [facility] Care Team Providers Care Hydrator Name Role Phone Christiane Bernstein Unavailable KAILEE YOUNGBLOOD Primary Care Unavailable MARIKA MCELROY Attending Unavailable Unavailable Primary Care Provider UnavailCORA Joe Attending Unavailable CAMILLE TRAN Unavailable CORA PEACE Attending Unavailable Medications Current Medications Medication Drug [...] UA Negative Negative - 4(70) +++ mg/dL [facility] Blood, UA Negative Negative - 50 Eloy/mcL [facility] Clarity, UA Clear [facility] re Color, UA Yellow [facility] Glucose, UA Negative Negative - 1999(110) ++++ mg/dL [facility] Interpretation and review of laboratory results Normal [facility] re Ketones, UA Negative Negative - 160(16) ++++ mg/dL [facility] Leukocytes, UA Negative Negative - 500+++ Srinivas/mcL [facility] Nitrite, UA Negative Negative - Positive [facility] pH, UA 5.5 5 - 9 [facility] e Protein, UA Negative Negative - 1999(20) ++++ mg/dL [facility] Spec Grav, UA 1.030 1 - 1.03 [facility] Urobilinogen, UA 0.2 0.2 - 12 mg/dL [facility] e SARS/FLU A+B/RSV by NAAT/Mol ecularon [...] operators who are performing tests using either [employer] or [employer] systems and is limited to laboratories that [...] repeat. Fact Sheet for Healthcare Providers: https://www.fda.gov/ media/814685/downloa d Fact Sheet for Patients: https://www.fda.gov/ media/044278/downloa d [facility] Comment on above: Performed By: #### C OVFLR #### [facility] ([id number]) [address] [place] [address], [place] [address] COVID + FLU Quick Testingon 11-21-2022 SARS-CoV-2 (COVID-19) RNA DANNA+probe Ql (Unsp spec) Negative [facility] [employer] Other COVID + FLU Quick Testing Negative [employer] [facility] [employer] Other Quick Strepon 11-21-2022 S. pyogenes Org specific cx Ql (Throat) Negative [facility] [employer] Other Quick Strep [facility] [employer] Other Vital Signs Date Time Vital Sign Value Performing Clinician Facility 12-24-2023 09:36-0500 Body weight 65.68 kg Camille QUEEN Work Phone: [facility] 12-24-2023 09:36-0500 Diastolic blood pressure 60 mm[Hg] Camille QUEEN Work Phone: [facility] 12-24-2023 09:36-0500 Systolic blood pressure 110 mm[Hg] Camille Tran PA Work Phone: [facility] 11-21-2022 18:45-0500 Body height 165.1 cm Christiane Bernstein Other [email or web address] Other 11-21-2022 18:45-0500 Body mass index (BMI) [Ratio] 23.29 kg/m2 Christiane Bernstein Other [email or web address] Other 11-21-2022 18:45-0500 Body temperature 98 [degF] Christiane Bernstein Other [email or web address] Other 11-21-2022 18:45-0500 Body weight 63.5 kg Christiane Bernstein Other [email or web address] Other 11-21-2022 18:45-0500 Diastolic blood pressure 82 mm[Hg] Christiane Bernstein Other [email or web address] Other 11-21-2022 18:45-0500 Respiratory rate 16 /min Christiane Bernstein Other [email or web address] Other 11-21-2022 18:45-0500 SaO2% (BldA) [Mass fraction] 100 % Christiane Bernstein Other [email or web address] Other 11-21-2022 18:45-0500 Systolic blood pressure 114 mm[Hg] Christiane Day Other [email or web address] Other Encounters Encounter Date Encounter Type Care Provider Facility Start: 01-21-2024 End: 01-21-2024 ambulatory CORA PEACE Not Available Start: 12-24-2023 End: 12-24-2023 ambulatory CAMILLE TRAN Not Available Start: 12-24-2023 End: 12-24-2023 Office outpatient visit 15 minutes Camille QUEEN Work Phone: [facility] Comment on above: Second trimester pre gnancy; Diabetes mellitus screening Start: 11-28-2023 End: 11-28-2023 Emergency department patient visit KAILEE YOUNGBLOOD [facility] Start: 11-25-2023 End: 11-25-2023 ambulatory CORA ANGÉLICA Not Available Start: 10-23-2023 End: 10-23-2023 ambulatory CORA ANGÉLICA Not Available Start: 11-21-2022 End: 11-21-2022 ambulatory Christiane Day Other [email or web address] Other Start: 11-21-2022 Office outpatient visit 25 minutes Christiane Bernstein [facility] Procedures Date Procedure Procedure Detail Performing Clinician Start: 12-24-2023 Urnls dip stick/tabl et rgnt non-auto w/o micrscp Camille QUEEN Work Phone: Plan of Treatment Date Care Activity Detail Author Start: 01-21-2024 End: 01-21-2024 Patient encounter procedure 01/21/2024 10:40 AM EST Routine [facility] [address] [place] [address] AngélicaCora, DO [address] [place] [address] [facility] Start: 01-21-2024 End: 01-21-2024 Professional / ancillary services management 01/21/2024 9:30 AM EST Ancillary Procedure [facility] [address] [place] [address] [facility] Start: 12-24-2023 End: [...] Expected: 12/24/2023 (Approximate), Expires: 12/24/2024 [facility] Comment on above: Expected: 12/24/2023 (Approximate), Expires: 12/24/2024 Start: 07-18-2023 Influenza vaccination Influenz a Vaccine (#1) [facility] Payers Date Payer Category Payer Medicaid [id number] 2023 Medicaid MEDICAID [facility] [id number] 2023-Present [phone] [address] [place] [address] Medicaid [id number] 1997 Unknown [id number] 1997 Unknown [id number] 1997 Unknown [id number] 1997 Unknown [id number] 1997 Unknown [id number] Social History Date Type Detail Facility Sex Assigned At [email or web address] Other Tobacco smoking status NVIS Tobacco smoking consumption unknown [facility] Start: 08-18-2023 [facility] Start: 1995 Sex Assigned At Not on file N [facility] History of Present illness Narrative 12-24-2023 [...] of: BERNICE Navarro documented in this encounter [facility] Evaluation note 11-21-2022 Note Date & [...] weeks for the cough to go away [email or web address] Other Evaluation note Note Date & Type [...] section and content) DATE CREATED AUTHOR 11/30/2023 [facility] DATE CREATED AUTHOR AUTHOR'S ORGANIZ ATION 01/22/2024 [facility] Specialists [facility] FOR RECORDS PERTAINING TO PATIENTS WHO ARE [...] BE BASED ON THE PRIMARY CLINICAL RECORDS. [facility] [employer] [facility]. provides no warranty or guarantee of the accuracy or completeness of information in this document.
[2024-02-02 10:12] LABS: Basophils Absolute Auto 0.1 10^3/uL (0.0-0.1); Basophils Percent Auto 0.5 % (0.2-2.0); Eosinophils Absolute Auto 0.2 10^3/uL (0.0-0.7); Eosinophils Percent Auto 1.6 % (0.9-7.0); Hematocrit 33.2 % (36.0-48.0); Hemoglobin 10.7 g/dL (12.0-16.0); Immature Granulocytes Abs Auto 0.07 10^3/uL (0.00-0.03); Immature Granulocytes Pct Auto 0.7 % (0.0-0.5); Lymphocytes Absolute Auto 2.4 10^3/uL (1.2-3.8); Lymphocytes Percent Auto 24.5 % (20.5-60.0); Mean Corpuscular HGB Conc 32.2 g/dL (29.9-35.2); Mean Corpuscular Hemoglobin 31.3 pg (26.7-34.0); Mean Corpuscular Volume 97.1 fL (81.0-99.0); Mean Platelet Volume 10.1 fL (9.5-13.5); Monocytes Absolute Auto 0.4 10^3/uL (0.3-0.8); Monocytes Percent Auto 4.3 % (1.7-12.0); Neutrophils Absolute Auto 6.8 10^3/uL (1.4-6.5); Neutrophils Percent Auto 68.4 % (43.0-75.0); Platelet Count 242 10^3/uL (150-450); Red Blood Count 3.42 10^6/uL (4.20-5.40); Red Cell Distribution Width 13.2 % (11.0-15.0); White Blood Count 9.9 10^3/uL (4.0-11.0)
[2024-02-02 11:07] LABS: Glucose 1 Hour 83 mg/dL (<130)
== END 2024-02-02 08:45 | disposition home or self-care (01) ==
LOC: LAB 08:46
PROVIDERS: Visit Provider Obstetrics & Gynecology
DX: Z13.1 Encounter for screening for diabetes mellitus (principal)
CPT/HCPCS: 36415; 82950; 85025

== ENCOUNTER 2024-02-18 10:23 | Outpatient (OUT) | payer MEDICAID, SELFPAY ==
--- NOTE | 2024-02-18 10:29 | US_ITS ---
The [address] [address] Patient Name: VITO WHEAT MRN: [id number] date: 1995 Sex: F Assigned Patient Location: [facility] Current Patient Location: [facility] Accession/Order Number: [id number] Exam Date: 02/18/2024 10:29 Report Date: 02/18/2024 11:17 At the request of: RAMIREZ TRAN Procedure: US OB placenta EXAMINATION: US OB placenta, US OB cervical length HISTORY: LOW LYING PLACENTA COMPARISON: Ultrasound OB anatomy 01/21/2024 FINDINGS: PLACENTA: Posterior with lower margin 3.2 cm from os. Numerous prominent vessels/vascular channels between placenta and posterior uterine wall; not appreciably changed. CERVIX LENGTH: 3.8 cm in length, closed. HEART RATE: 137 bpm OTHER: None. US/US OB placenta IMPRESSION: 1. Posterior placenta which has migrated cephalad; now 3.2 cm from internal os. 2. Single live intrauterine . 3. Closed cervix 3.8 cm in length. Electronically authenticated by: ZANE ZAMORA Date: 02/18/2024 11:17
--- NOTE | 2024-02-18 10:29 | US_ITS ---
The [address] [address] Patient Name: VITO WHEAT MRN: [id number] date: 1995 Sex: F Assigned Patient Location: [facility] Current Patient Location: [facility] Accession/Order Number: [id number] Exam Date: 02/18/2024 10:29 Report Date: 02/18/2024 11:17 At the request of: RAMIREZ TRAN Procedure: US OB cervical length EXAMINATION: US OB placenta, US OB cervical length HISTORY: LOW LYING PLACENTA COMPARISON: Ultrasound OB anatomy 01/21/2024 FINDINGS: PLACENTA: Posterior with lower margin 3.2 cm from os. Numerous prominent vessels/vascular channels between placenta and posterior uterine wall; not appreciably changed. CERVIX LENGTH: 3.8 cm in length, closed. HEART RATE: 137 bpm OTHER: None. US/US OB cervical length IMPRESSION: 1. Posterior placenta which has migrated cephalad; now 3.2 cm from internal os. 2. Single live intrauterine . 3. Closed cervix 3.8 cm in length. Electronically authenticated by: ZANE ZAMORA Date: 02/18/2024 11:17
--- OUTSIDE RECORDS SUMMARY | 2024-02-18 10:47 | XMS_ITS | CCD ---
Author Organization [facility] Care Team Providers Care Research Assistant Name Role Phone Christiane Bernstein Unavailable KAILEE YOUNGBLOOD Primary Care Unavailable MARIKA MCELROY Attending Unavailable Unavailable Primary Care Provider UnavailCROA Joe Attending Unavailable CAMILLE TRAN Attending Unavailable CORA LINDSAY Attending Unavailable Medications Current Medications Medication Drug [...] UA Negative Negative - 4(70) +++ mg/dL [facility] Blood, UA Negative Negative - 50 Eloy/mcL [facility] Clarity, UA Clear [facility] Color, UA Yellow [facility] e Glucose, UA Negative Negative - 1999(110) ++++ mg/dL [facility] Interpretation and review of laboratory results Normal [facility] re Ketones, UA Negative Negative - 160(16) ++++ mg/dL [facility] Leukocytes, UA Negative Negative - 500+++ Srinivas/mcL [facility] Nitrite, UA Negative Negative - Positive [facility] pH, UA 5.5 5 - 9 [facility] e Protein, UA Negative Negative - 1999(20) ++++ mg/dL [facility] Spec Grav, UA 1.030 1 - 1.03 [facility] Urobilinogen, UA 0.2 0.2 - 12 mg/dL [facility] Health[facility] e SARS/FLU A+B/RSV by NAAT/Mol ecularon [...] operators who are performing tests using either [employer] or [employer] systems and is limited to laboratories that [...] repeat. Fact Sheet for Healthcare Providers: https://www.fda.gov/ media/391797/downloa d Fact Sheet for Patients: https://www.fda.gov/ media/879364/downloa d Normal [facility] Comment on above: Performed By: #### C OVFLR #### [facility] ([id number]) [address] [place] [address], [place] [address] COVID + FLU Quick Testingon 11-21-2022 SARS-CoV-2 (COVID-19) RNA DANNA+probe Ql (Unsp spec) Negative [facility] [employer] Other COVID + FLU Quick Testing Negative [facility] [employer] Other Quick Strepon 11-21-2022 S. pyogenes Org specific cx Ql (Throat) Negative [facility] [employer] Other Quick Strep [facility] [employer] Other Vital Signs Date Time Vital Sign Value Performing Clinician Facility 12-24-2023 09:36-0500 Body weight 65.68 kg Camille QUEEN Work Phone: [facility] 12-24-2023 09:36-0500 Diastolic blood pressure 60 mm[Hg] Camille QUEEN Work Phone: [facility] 12-24-2023 09:36-0500 Systolic blood pressure 110 mm[Hg] Camille QUEEN Work Phone: [facility] 11-21-2022 18:45-0500 Body height 165.1 cm Christiane Bernstein Other [employer] Other 11-21-2022 18:45-0500 Body mass index (BMI) [Ratio] 23.29 kg/m2 Christiane Bernstein Other [employer] Other 11-21-2022 18:45-0500 Body temperature 98 [degF] Christiane Bernstein Other [employer] Other 11-21-2022 18:45-0500 Body weight 63.5 kg Christiane Bernstein Other [employer] Other 11-21-2022 18:45-0500 Diastolic blood pressure 82 mm[Hg] Christiane Bernstein Other [employer] Other 11-21-2022 18:45-0500 Respiratory rate 16 /min Christiane Bernstein Other [employer] Other 11-21-2022 18:45-0500 SaO2% (BldA) [Mass fraction] 100 % Christiane Bernstein Other [employer] Other 11-21-2022 18:45-0500 Systolic blood pressure 114 mm[Hg] Christiane Bernstein Other [employer] Other Encounters Encounter Date Encounter Type Care Provider Facility Start: 01-21-2024 End: 01-21-2024 ambulatory CORA LINDSAY Not Available Start: 12-24-2023 End: 12-24-2023 ambulatory CAMILLE TRAN Not Available Start: 12-24-2023 End: 12-24-2023 Office outpatient visit 15 minutes Camille Tran PA Work Phone: [facility] Comment on above: Second trimester pre gnancy; Diabetes mellitus screening Start: 11-28-2023 End: 11-28-2023 Emergency department patient visit KAILEE YOUNGBLOOD [facility] Start: 11-25-2023 End: 11-25-2023 ambulatory CORA NATA Not Available Start: 10-23-2023 End: 10-23-2023 ambulatory CORA NATA Not Available Start: 11-21-2022 End: 11-21-2022 ambulatory Christiane Bernstein Other [facility] [employer] Other Start: 11-21-2022 Office outpatient visit 25 minutes Christiane Bernstein [facility] Procedures Date Procedure Procedure Detail Performing Clinician Start: 12-24-2023 Urnls dip stick/tabl et rgnt non-auto w/o micrscp Camille QUEEN Work Phone: Plan of Treatment Date Care Activity Detail Author Start: 01-21-2024 End: 01-21-2024 Patient encounter procedure 01/21/2024 10:40 AM EST Routine [facility] [address] [facility] [address] Cora Lindsay, DO [address] [place] [address] [facility] Start: 01-21-2024 End: 01-21-2024 Professional / ancillary services management 01/21/2024 9:30 AM EST Ancillary Procedure [facility] [address] [place] [address] [facility] Start: 12-24-2023 End: [...] mellitus screening Expected: 12/24/2023 (Approximate), Expires: 12/24/2024 [facility] Healthcare Comment on above: Expected: 12/24/2023 (Approximate), Expires: 12/24/2024 Start: 07-18-2023 Influenza vaccination Influenz a Vaccine (#1) [facility] Healthcare Payers Date Payer Category Payer Medicaid [id number] 2023 Medicaid MEDICAID [facility] [id number] 2023-Present [phone] [address] [place] [address] Medicaid [id number] 1995 Unknown [id number] 1995 Unknown [id number] 1995 Unknown [id number] 1997 Unknown [id number] 1997 Unknown [id number] Social History Date Type Detail Facility Sex Assigned At [employer] Other Tobacco smoking status TXIS Tobacco smoking consumption unknown [facility] Start: 08-18-2023 [facility] Start: 1995 Sex Assigned At Not on file N [facility] History of Present illness Narrative 12-24-2023 [...] of: BERNICE Navarro documented in this encounter [facility] Healthcare Evaluation note 11-21-2022 Note Date & [...] weeks for the cough to go away [employer] Other Evaluation note Note Date & Type Note Facility Evaluation note Diagnosis Second trimester state, incidental Diabetes mellitus screening Screening for diabetes mellitus documented in this encounter [facility] Healthcare Summary Purpose Family History No Family History Records FoundNo Family History Records Found Advance Directives No Advanced Directives Records FoundNo Advanced Directives Records Found Additional Source Comments REASON FOR VISIT (unrecogniz ed section and content) Reason Comments Routine Visit INFORMATION SOURCE (unrecogn ized section and content) DATE CREATED AUTHOR 11/30/2023 [facility] DATE CREATED AUTHOR AUTHOR'S ORGANIZ ATION 01/22/2024 [facility] Specialists [facility] FOR RECORDS PERTAINING TO PATIENTS WHO [...] BE BASED ON THE PRIMARY CLINICAL RECORDS. [employer] [facility]. provides no warranty or guarantee of the accuracy or completeness of information in this document.
== END 2024-02-18 10:24 | disposition home or self-care (01) ==
LOC: NOMS 10:24
PROVIDERS: Visit Provider Physician Assistant
DX: O44.00 Complete placenta previa NOS or without hemorrhage, unspecified trimester (principal)
CPT/HCPCS: 76815; 76817

== ENCOUNTER 2024-04-13 20:24 | Outpatient (REF) | payer MEDICAID, SELFPAY ==
--- OUTSIDE RECORDS SUMMARY | 2024-04-13 20:30 | XMS_ITS | CCD ---
Author Organization [facility] Care Team Providers Care Senior Media Buyer Name Role Phone Christiane Bernstein Unavailable KAILEE YOUNGBLOOD Primary Care Unavailable MARIKA MCELROY Attending Unavailable Unavailable Primary Care Provider UnavailCORA Joe Attending Unavailable CAMILLE TRAN Attending Unavailable NATA, CORA Attending Unavailable CAMILLE TRAN Attending Unavailable NATA, CORA Attending Unavailable NATA, CORA Attending Unavailable NATA, CORA Attending Unavailable Medications Current Medications Medication Drug [...] UA Negative Negative - 4(70) +++ mg/dL [facility] Blood, UA Negative Negative - 50 Eloy/mcL [facility] Clarity, UA Clear [facility] re Color, UA Yellow [facility] Glucose, UA Negative Negative - 1999(110) ++++ mg/dL [facility] Interpretation and review of laboratory results Normal [facility] re Ketones, UA Negative Negative - 160(16) ++++ mg/dL [facility] Leukocytes, UA Negative Negative - 500+++ Srinivas/mcL [facility] Nitrite, UA Negative Negative - Positive [facility] pH, UA 5.5 5 - 9 [facility] e Protein, UA Negative Negative - 1999(20) ++++ mg/dL [facility] Spec Grav, UA 1.030 1 - 1.03 [facility] Urobilinogen, UA 0.2 0.2 - 12 mg/dL [facility] e SARS/FLU A+B/RSV by [...] operators who are performing tests using either Weixinhai DX or [employer] Pewte[employer] systems and is limited to laboratories that [...] repeat. Fact Sheet for Healthcare Providers: https://www.fda.gov/ media/230449/downloa d Fact Sheet for Patients: https://www.fda.gov/ media/086696/downloa d [facility] Comment on above: Performed By: #### C OVFLR #### [facility] ([id number]) [address] [place] [address], [place] [address] COVID + FLU Quick Testingon 11-21-2022 SARS-CoV-2 (COVID-19) RNA DANNA+probe Ql (Unsp spec) Negative [employer] Other COVID + FLU Quick Testing Negative [employer] Other Quick Strepon 11-21-2022 S. pyogenes Org specific cx Ql (Throat) Negative [employer] Other Quick Strep [employer] Other Vital Signs Date Time Vital Sign Value Performing Clinician Facility 12-24-2023 09:36-0500 Body weight 65.68 kg Caimlle QUEEN Work Phone: [facility] 12-24-2023 09:36-0500 Diastolic blood pressure 60 mm[Hg] Camille QUEEN Work Phone: [facility] 12-24-2023 09:36-0500 Systolic blood pressure 110 mm[Hg] Camille QUEEN Work Phone: [facility] 11-21-2022 18:45-0500 Body height 165.1 cm Christiane Bernstein Other [employer] Other 11-21-2022 18:45-0500 Body mass index (BMI) [Ratio] 23.29 kg/m2 Christiane Bernstein Other [employer] Other 11-21-2022 18:45-0500 Body temperature 98 [degF] Christiane Stevensonault Other [employer] Other 11-21-2022 18:45-0500 Body weight 63.5 kg Christiane Bernstein Other [employer] Other 11-21-2022 18:45-0500 Diastolic blood pressure 82 mm[Hg] Christiane Stevensonault Other [employer] Other 11-21-2022 18:45-0500 Respiratory rate 16 /min Christiane Bernstein Other [employer] Other 11-21-2022 18:45-0500 SaO2% (BldA) [Mass fraction] 100 % Christiane Bernstein Other [employer] Other 11-21-2022 18:45-0500 Systolic blood pressure 114 mm[Hg] Christiane Stevensonault Other [employer] Other Encounters Encounter Date Encounter Type Care Provider Facility Start: 04-05-2024 End: 04-05-2024 ambulatory CORA LINDSAY Not Available Start: 03-22-2024 End: 03-22-2024 ambulatory CORA NATA Not Available Start: 03-04-2024 End: 03-04-2024 ambulatory CORA NATA Not Available Start: 02-18-2024 End: 02-18-2024 ambulatory CAMILLE TRAN Not Available Start: 01-21-2024 End: 01-21-2024 ambulatory CORA NATA Not Available Start: 12-24-2023 End: 12-24-2023 ambulatory CAMILLE TRAN Not Available Start: 12-24-2023 End: 12-24-2023 Office outpatient visit 15 minutes Camille QUEEN Work Phone: [facility] Comment on above: Second trimester pre gnancy; Diabetes mellitus screening Start: 11-28-2023 End: 11-28-2023 [facility] Start: 11-25-2023 End: 11-25-2023 ambulatory CORA NATA Not Available Start: 10-23-2023 End: 10-23-2023 ambulatory CORA NATA Not Available Start: 11-21-2022 End: 11-21-2022 ambulatory Christiane Bernstein Other [employer] Other Start: 11-21-2022 Office outpatient visit 25 minutes Christiane Bernstein [facility] Procedures Date Procedure Procedure Detail Performing Clinician Start: 12-24-2023 Urnls dip stick/tabl et rgnt non-auto w/o micrscp Camille QUEEN Work Phone: Plan of Treatment Date Care Activity Detail Author Start: 01-21-2024 End: 01-21-2024 Patient encounter procedure 01/21/2024 10:40 AM EST Routine [facility] [address] [place] [address] Cora Lindsay, DO [address] [place] [address] [facility] Start: 01-21-2024 End: 01-21-2024 Professional / ancillary services management 01/21/2024 9:30 AM EST Ancillary Procedure [facility] [address] [place] [address] [place] [address] [facility] OB Start: 12-24-2023 End: 12-24-2024 CBC panel - Blood by Automated count CBC Lab Routine Diabetes mellitus screening Expected: 12/24/2023 (Approximate), Expires: 12/24/2024 [facility] Healthcare Work Phone: Comment on above: Expected: 12/24/2023 (Approximate), Expires: 12/24/2024 Start: 12-24-2023 End: 12-24-2024 Measurement of glucose 1 hour after glucose challenge for glucose tolerance test Glucose tolerance, 1 hour Lab Routine Diabetes mellitus screening Expected: 12/24/2023 (Approximate), Expires: 12/24/2024 [facility] Comment on above: Expected: 12/24/2023 (Approximate), Expires: 12/24/2024 Start: 07-18-2023 Influenza vaccination Influenz a Vaccine (#1) [facility] Payers Date Payer Category Payer Medicaid [id number] 2023 Medicaid MEDICAID [facility] [id number] 2023-Present [phone] [address] [place] [address] Medicaid [id number] 1997 Unknown [id number] 1997 Unknown [id number] 1997 Unknown [id number] [id number] 1997 Unknown [id number] [id number] 1997 Unknown [id number] [id number] 1997 Unknown [id number] [id number] 1997 Unknown [id number] [id number] 1997 Unknown [id number] [id number] 1997 Unknown [id number] Social History Date Type Detail Facility 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 Other Tobacco smoking status [facility] Tobacco smoking consumption unknown [facility] Start: [...] of: BERNICE Navarro documented in this encounter [facility] Healthcare Evaluation note 11-21-2022 Note Date [...] weeks for the cough to go away [employer] Other Evaluation note Note Date & Type [...] section and content) DATE CREATED AUTHOR 11/30/2023 [facility] DATE CREATED AUTHOR AUTHOR'S ORGANIZ ATION 04/07/2024 [facility] Special[facility] FOR RECORDS PERTAINING TO PATIENTS WHO [...] BE BASED ON THE PRIMARY CLINICAL RECORDS. [facility] [employer] [facility]. provides no warranty or guarantee of the accuracy or completeness of information in this document.
== END 2024-04-13 20:25 | disposition home or self-care (01) ==
LOC: LAB 20:24
PROVIDERS: Visit Provider Obstetrics & Gynecology
DX: Z34.93 Encounter for supervision of normal pregnancy, unspecified, third trimester (principal)
CPT/HCPCS: 87081

== ENCOUNTER 2024-04-28 13:00 | Outpatient (OUT) | payer MEDICAID, SELFPAY ==
--- NOTE | 2024-04-28 13:01 | US_ITS ---
[address] [address] Patient Name: VITO WHEAT MRN: [id number] date: 1995 Sex: F [facility] Accession/Order Number: [id number] Exam Date: 04/28/2024 13:02 Report Date: 04/28/2024 14:11 At the request of: CORA PEACE Procedure: US OB growth EXAMINATION: US OB growth HISTORY: LARGE FOR GESTATIONAL AGE COMPARISON: No relevant comparison available. FINDINGS: Heart Rate: 151.0 bpm Amniotic Fluid Volume: 16.4 cm Number: 1.0 Position: Cephalic presentation, longitudinal lie Maximum Vertical Pocket: 5.0 cm cm 3.4 cm cm 4.5 cm cm 3.5 cm cm BIOMETRY: BPD: 9.2 cm cm; 37 weeks 1 days; 46% HC: 32.8 cmcm; 37 weeks 2 days , 13% AC: 34.2 cm cm; 38 weeks 1 days, 64% FL: 7.6 cm cm; 39 weeks 0 days; 73.2 % % EFW: 3397.2 grams, 7 lbs. 8 oz., 60% FL/AC: 22.4 FL/BPD: 83.4 HC/AC: 1.0 GESTATIONAL AGE: Age by EDC: 38 weeks 2 days NICOLE by EDC: 05/10/2024 Age by US: 37 weeks 6 days NICOLE by US: 05/13/2024 US/US OB growth IMPRESSION: Normal interval growth Electronically authenticated by: JIMBO LEMON Date: 04/28/2024 14:11
== END 2024-04-28 13:01 | disposition home or self-care (01) ==
LOC: NOMS 13:00
PROVIDERS: Visit Provider Obstetrics & Gynecology
DX: O36.63X0 Maternal care for excessive fetal growth, third trimester, not applicable or unspecified (principal); Z3A.38 38 weeks gestation of pregnancy
CPT/HCPCS: 76816

== ENCOUNTER 2024-05-11 19:53 | Inpatient (IN) | payer MEDICAID, SELFPAY ==
--- OUTSIDE RECORDS SUMMARY | 2024-05-11 19:57 | XMS_ITS | CCD ---
Author Organization [facility] Care Team Providers Care Telemarketer Name Role Phone Christiane Bernstein Unavailable KAILEE [...] 12 hrs for 7 days Nov, Active miconazole nitrate 20 mg/ml vaginal cream (1 source) Azole Antifungal Start: 04-23-2024 Miconazole Nitrate (Monistat 7) 2 % cream Active 1 APPLICATOR VAGINAL Daily at bedtime 45 7 April 23, 2024 12:00am Problems Problem Classification Problem Date Documented Da [...] with other respiratory manifestations] Onset: 11-28-2023 Episodic Mycoses (2 sources) Mycosis; Translations: [Candidiasis, unspecified] 04-23-2024 Episodic Other and delivery including normal (2 [...] UA Negative Negative - 4(70) +++ mg/dL [facility] Blood, UA Negative Negative - 50 Eloy/mcL [facility] Clarity, UA Clear [facility] re Color, UA Yellow [facility] Glucose, UA Negative Negative - 1999(110) ++++ mg/dL [facility] Interpretation and review of laboratory results Normal [facility] re Ketones, UA Negative Negative - 160(16) ++++ mg/dL [facility] Leukocytes, UA Negative Negative - 500+++ Srinivas/mcL [facility] Nitrite, UA Negative Negative - Positive [facility] pH, UA 5.5 5 - 9 [facility] e Protein, UA Negative Negative - 1999(20) ++++ mg/dL [facility] Spec Grav, UA 1.030 1 - 1.03 [facility] Urobilinogen, UA 0.2 0.2 - 12 mg/dL [facility] SARS/FLU A+B/RSV by NAAT/Mol ecularon [...] operators who are performing tests using either Telecardia DX or Mine systems and is limited to laboratories that [...] repeat. Fact Sheet for Healthcare Providers: https://www.fda.gov/ media/307581/downloa d Fact Sheet for Patients: https://www.fda.gov/ media/206669/downloa d Normal [facility] Comment on above: Performed By: #### C OVFLR #### [facility] ([id number]) [address] [place] [address], [place] [address] COVID + FLU Quick Testingon 11-21-2022 SARS-CoV-2 (COVID-19) RNA DANNA+probe Ql (Unsp spec) Negative [employer] Other COVID + FLU Quick Testing Negative [employer] Other Quick Strepon 11-21-2022 S. pyogenes Org specific cx Ql (Throat) Negative [employer] Other Quick Strep Register My Info [facility] [employer] Other Vital Signs Date Time Vital Sign Value Performing Clinician Facility 04-23-2024 13:43-0400 Body height 165.1 cm [facility] 04-23-2024 13:43-0400 Body mass index (BMI) [Ratio] 29.4 kg/m2 [facility] 04-23-2024 13:43-0400 Body temperature 97.5 [degF] [facility] 04-23-2024 13:43-0400 Body weight 80.28 kg [facility] 04-23-2024 13:43-0400 Diastolic blood pressure 85 mm[Hg] [facility] 04-23-2024 13:43-0400 Heart rate 80 /min [facility] 04-23-2024 13:43-0400 Respiratory rate 16 /min [facility] 04-23-2024 13:43-0400 SaO2% (BldA) [Mass fraction] 98 % [facility] 04-23-2024 13:43-0400 Systolic blood pressure 128 mm[Hg] [facility] 12-24-2023 09:36-0500 Body weight 65.68 kg Camille QUEEN Work Phone: [facility] 12-24-2023 09:36-0500 Diastolic blood pressure 60 mm[Hg] Camille QUEEN Work Phone: [facility] 12-24-2023 09:36-0500 Systolic blood pressure 110 mm[Hg] Camille QUEEN Work Phone: [facility] 11-21-2022 18:45-0500 Body height 165.1 cm Christiane Bernstein Other [employer] Other 11-21-2022 18:45-0500 Body mass index (BMI) [Ratio] 23.29 kg/m2 Christiane Bernstein Other [employer] Other 11-21-2022 18:45-0500 Body temperature 98 [degF] Christiane Bernstein Other [employer] Other 11-21-2022 18:45-0500 Body weight 63.5 kg Christiane Bernstein Other [employer] Other 11-21-2022 18:45-0500 Diastolic blood pressure 82 mm[Hg] Christiane Bernstein Other [employer] Other 11-21-2022 18:45-0500 Respiratory rate 16 /min Christiane Bernstein Other [employer] Other 11-21-2022 18:45-0500 SaO2% (BldA) [Mass fraction] 100 % Christiane Bernstein Other [employer] Other 11-21-2022 18:45-0500 Systolic blood pressure 114 mm[Hg] Christiane Bernstein Other [employer] Other Encounters Encounter Date Encounter Type Care Provider Facility Start: 05-05-2024 End: 05-05-2024 ambulatory CORA NATA Not Available Start: 04-28-2024 End: 04-28-2024 ambulatory CORA NATA Not Available Start: 04-23-2024 End: 04-23-2024 ambulatory [facility] Work Phone: Start: 04-23-2024 End: 04-23-2024 Patient encounter procedure [facility] Work Phone: Start: 04-20-2024 End: 04-20-2024 ambulatory CORA NATA Not Available Start: 04-13-2024 End: 04-13-2024 ambulatory CORA NATA Not Available Start: 04-05-2024 End: 04-05-2024 ambulatory CORA NATA Not Available Start: 03-22-2024 End: 03-22-2024 ambulatory CORA NATA Not Available Start: 03-04-2024 End: 03-04-2024 ambulatory CORA NATA Not Available Start: 02-18-2024 End: 02-18-2024 ambulatory CAMILLE TRAN Not Available Start: 01-21-2024 End: 01-21-2024 ambulatory CORA NATA Not Available Start: 12-24-2023 End: 12-24-2023 Office outpatient visit 15 minutes Camille QUEEN Work Phone: [facility] Comment on above: Second trimester pre gnancy; Diabetes mellitus screening Start: 12-24-2023 End: 12-24-2023 ambulatory CAMILLE TRAN Not Available Start: 11-28-2023 End: 11-28-2023 Emergency department patient visit [facility] Start: 11-25-2023 End: 11-25-2023 ambulatory CORA NATA Not Available Start: 10-23-2023 End: 10-23-2023 ambulatory CORA NATA Not Available Start: 11-21-2022 End: 11-21-2022 ambulatory Christiane Bernstein Other [employer] Other Start: 11-21-2022 Office outpatient visit 25 minutes Christiane Bernstein [facility] Procedures Date Procedure Procedure Detail Performing Clinician Start: 12-24-2023 Urnls dip stick/tabl et rgnt non-auto w/o micrscp Camille QUEEN Work Phone: Plan of Treatment Date Care Activity Detail Author Start: 01-21-2024 End: 01-21-2024 Patient encounter procedure 01/21/2024 10:40 AM EST Routine [facility] [address] [place] [address] Cora Lindsay, DO [address] [place] [address] [facility] Start: 01-21-2024 End: 01-21-2024 Professional / ancillary services management 01/21/2024 9:30 AM EST Ancillary Procedure [facility] [address] [place] [address] [place] [address] [facility] Start: 12-24-2023 End: 12-24-2024 CBC panel - Blood by Automated count CBC Lab Routine Diabetes mellitus screening Expected: 12/24/2023 (Approximate), Expires: 12/24/2024 [facility] Work Phone: Comment on above: Expected: 12/24/2023 (Approximate), Expires: 12/24/2024 Start: 12-24-2023 End: 12-24-2024 Measurement of glucose 1 hour after glucose challenge for glucose tolerance test Glucose tolerance, 1 hour Lab Routine Diabetes mellitus screening Expected: 12/24/2023 (Approximate), Expires: 12/24/2024 [facility] Comment on above: Expected: 12/24/2023 (Approximate), Expires: 12/24/2024 Start: 07-18-2023 Influenza vaccination Influenz a Vaccine (#1) [facility] Payers Date Payer Category Payer Medicaid MEDICAID [facility] [id number] 2023-Present [phone] [address] [place] [address] Medicaid [id number] 2023 Medicaid [id number] 1997 Unknown [id number] [id number] 1997 Unknown [id number] [id number]59 1997 Unknown [id number] 2.16.840.1.005289.3.579.2.1259 1997 Unknown [id number] 2.16.840.1.437934.3.579.2.1259 1997 Unknown [id number] 2.16.840.1.213918.3.579.2.1259 1997 Unknown [id number] 2.16.840.1.179955.3.579.2.9 1997 Unknown [id number] 2.16.840.1.380681.3.579.2.1259 1997 Unknown [id number] 2.16.840.1.333114.3.579.2.1259 1997 Unknown [id number] 2.16.840.1.881698.3.579.2.1259 1997 Unknown [id number] 2.16.840.1.393022.3.579.2.9 1997 Unknown [id number] 2.16.840.1.198835.3.579.2.1259 1997 Unknown [id number] 2.16.840.1.933392.3.579.2.9 1997 Unknown [id number] [id number] Self-pay Self Pay [id number] Social History Date Type Detail Facility Sex Assigned At [employer] Other Tobacco smoking status [facility] Tobacco smoking consumption unknown [facility] Start: 08-18-2023 [facility] Start: 1995 Sex Assigned At Not on file [facility] Start: 1995 Sex Assigned At Female [facility] History of Present illness Narrative 12-24-2023 BERNICE [...] weeks for the cough to go away [employer] Other Evaluation note Note Date & Type Note Facility Evaluation note Diagnosis Second trimester state, incidental Diabetes mellitus screening Screening for diabetes mellitus documented in this encounter [facility] Evaluation note Note Date & Type Note Facility Evaluation note Diagnosis Onset Date Yeast infection [facility] Work Phone: Summary Purpose Family History No Family History Records Found Relationship Condition Age at Onset Recorded Date/T veena father Unknown Advance Directives No Advanced Directives Records Found Advance Directive Response Recorded Date/ Time Advance Directives No January 17 6:56pm Chief Complaint and Reason for Visit Chief Complaint Yeast infection Reason for Visit Yeast infection Additional Source Comments REASON FOR VISIT (unrecogniz ed section and content) Reason Comments Routine Visit INFORMATION SOURCE (unrecogn ized section and content) DATE CREATED AUTHOR 11/30/2023 [facility] DATE CREATED AUTHOR AUTHOR'S ORGANIZ ATION 05/07/2024 [facility] dical Specialists EPIC Care Teams (unrecognized sec tion and content) Team Status: Active Member Role Status Dates PHYSICIAN NO FAMILY Primary Care Provider Active Team Status: Inactive Member Role Status Dates PHYSICIAN NO FAMILY Primary Care Provider Active Start: April 23, 2024 End: April 23, 2024 Trista Walker APRN Attending Provider Active S tart: April 23, 2024 End: April 23, 2024 Goals (unrecognized section and content) Goals may be documented in a n alternate section FOR RECORDS PERTAINING TO PATIENTS WHO ARE [...] BE BASED ON THE PRIMARY CLINICAL RECORDS. [facility] [employer] [facility]. provides no warranty or guarantee of the accuracy or completeness of information in this document.
[2024-05-11 20:38] LABS: Hematocrit 28.8 % (36.0-48.0); Hemoglobin 9.2 g/dL (12.0-16.0); Mean Corpuscular HGB Conc 31.9 g/dL (29.9-35.2); Mean Corpuscular Hemoglobin 26.7 pg (26.7-34.0); Mean Corpuscular Volume 83.7 fL (81.0-99.0); Platelet Count 200 10^3/uL (150-450); Red Blood Count 3.44 10^6/uL (4.20-5.40); Red Cell Distribution Width 14.6 % (11.0-15.0); White Blood Count 7.7 10^3/uL (4.0-11.0)
[2024-05-11 20:49] LABS: Amphetamine Screen Urine NEGATIVE (NEGATIVE); Barbiturates Screen Urine NEGATIVE (NEGATIVE); Benzodiazepines Screen Urine NEGATIVE (NEGATIVE); Buprenorphine Screen Urine NEGATIVE (NEGATIVE); Cannabinoid Screen Urine NEGATIVE (NEGATIVE); Cocaine Screen Urine NEGATIVE (NEGATIVE); Methadone Screen Urine NEGATIVE (NEGATIVE); Methamphetamines Screen Urine NEGATIVE (NEGATIVE); Opiate Screen Urine NEGATIVE (NEGATIVE); Oxycodone Screen Urine NEGATIVE (NEGATIVE); Phencyclidine Screen Urine NEGATIVE (NEGATIVE); Tricyclic Antidepressant Urine NEGATIVE (NEGATIVE)
[2024-05-11] MEDS: 0.9 % SODIUM CHLORIDE 1,000 ML 125 ML IV (23:23)
[2024-05-11] MEDS: OXYTOCIN/0.9 % SODIUM CHLORIDE 10 UNITS/500 ML PLAST..BAG 6 UNIT IV (23:55)
[2024-05-12] VITALS (88 sets, daily range): BP systolic 82–180; BP diastolic 43–119; PULSE 60–142; TEMP 36.8–37.3
[2024-05-12] MEDS: 0.9 % SODIUM CHLORIDE 1,000 ML 1000 ML IV (10:55)
[2024-05-12] MEDS: ROPIVACAINE HCL/PF 400 MG/200 ML PREMIX 6 MG EPIDURAL (10:58)
[2024-05-12] MEDS: FENTANYL CITRATE/PF 100 MCG/2 ML VIAL EPIDURAL ×2 (10:59)
[2024-05-12] MEDS: LIDOCAINE HCL 2% PF 100 MG/5 ML VIAL INJ (10:59)
[2024-05-12] MEDS: LIDOCAINE HCL 1% 200 MG/20 ML MDV INJ (17:06)
[2024-05-12] MEDS: OXYTOCIN/0.9 % SODIUM CHLORIDE 20 UNITS/1,000 ML PLAST..BAG 125 UNIT IV (17:15)
[2024-05-12] MEDS: CARBOPROST TROMETHAMINE 250 MCG/ML 1 ML VIAL IM (17:25)
--- NOTE | 2024-05-12 17:35 | PM.OBPRCVD ---
Procedure Intrapartal events: None Induction method: per pitocin protocol Delivery augmentation: rupture of membranes and pitocin Delivery monitor: external FHT and external uterine Route of delivery: Episiotomy Description: midline L&D Laceration Description: perineal - 2nd degree Delivery repair: Vicryl Estimated blood loss (mL): 450 Anesthesia type: Epidural Disposition: PACU Infant Delivery date: 05/12/24 Gender: female presentation: vertex Placental delivery description: Spontaneous cord description: 3 Vessels
[2024-05-12] MEDS: ONDANSETRON PF 4 MG/2 ML VIAL IV (17:40)
[2024-05-12] MEDS: BENZOCAINE/MENTHOL 85 GRAM SPRAY BOTTLE 1 APPLIC TOPICAL (17:56)
[2024-05-12] MEDS: GLYCERIN/WITCH HAZEL PADS 1 PAD TOPICAL (17:56)
[2024-05-12] MEDS: IBUPROFEN 600 MG TABLET PO (19:35)
[2024-05-13] VITALS (19 sets, daily range): BP systolic 113–135; BP diastolic 60–85; PULSE 83–99; TEMP 36.1–36.8; O2SAT 97–100
[2024-05-13] MEDS: IBUPROFEN 600 MG TABLET PO ×2 (02:22→08:43)
[2024-05-13 06:06] LABS: Basophils Percent Auto 0.1 % (0.2-2.0); Eosinophils Percent Auto 0.1 % (0.9-7.0); Immature Granulocytes Abs Auto 0.05 10^3/uL (0.00-0.03); Immature Granulocytes Pct Auto 0.4 % (0.0-0.5); Lymphocytes Absolute Auto 2.2 10^3/uL (1.2-3.8); Lymphocytes Percent Auto 15.9 % (20.5-60.0); Mean Corpuscular HGB Conc 31.6 g/dL (29.9-35.2); Mean Corpuscular Hemoglobin 26.6 pg (26.7-34.0); Monocytes Absolute Auto 0.5 10^3/uL (0.3-0.8); Monocytes Percent Auto 3.7 % (1.7-12.0); Neutrophils Percent Auto 79.8 % (43.0-75.0); Platelet Count 154 10^3/uL (150-450); Red Blood Count 1.88 10^6/uL (4.20-5.40); Red Cell Distribution Width 15.1 % (11.0-15.0); White Blood Count 13.7 10^3/uL (4.0-11.0)
[2024-05-13 06:22] LABS: Hematocrit 15.8 % (36.0-48.0)
--- NOTE | 2024-05-13 08:02 | P.OBPN_ITS ---
OB - PN: Subj Subjective Patient comments: no complaints and pain well controlled [place] status: doing well Exam Constitutional Vital Signs, click to edit/add: Last Vital Signs Temp 98.3 F 05/12/24 19:58 Pulse 105 H 05/12/24 19:38 Resp 18 05/12/24 19:30 BP 117/74 05/12/24 19:38 O2 Del Method Room Air 05/12/24 19:30 Documenting provider has reviewed patient's vital signs: yes Common normals: no apparent distress Respiratory Common normals: normal respiratory effort and clear to auscultation bilaterally Cardio Common normals: regular rate and regular rhythm GI Common normals: Normal to inspection, nondistended, normoactive bowel sounds present Extremity Common normals: no calf tenderness and no pedal edema Results Labs Labs: Short CBC 05/13/24 Range/Units 05:57 WBC 13.7 H (4.0-11.0) 10^3/uL Hgb 5.0 L* D (12.0-16.0) g/dL Hct 15.8 L* (36.0-48.0) % Plt Count 154 (150-450) 10^3/uL Urinary Catheter Management Urinary Catheter Management Urethral: Cath placed during this visit: yes, but has since been removed by the nurse Insertion date: 05/12/24 Insertion time: 11:55 Removal date: 05/12/24 Removal time: 16:45 OB - PN: A/P Assessment and Plan (1) Acute blood loss anemia: Assessment and Plan: transfuse 2u repeat cbc 2hrs after last unit and in am Plan - Vaginal Delivery day: 1 Plan: routine care Time Spent with Patient Time: Total time spent is greater than 50% in coordination of care (as documented) at patient's floor/unit and/or counseling patient: Total time spent with greater than 50% in coordination of care (as documented) at patient's floor/unit and/or counseling patient: less than 15 minutes
[2024-05-13] MEDS: 0.9 % SODIUM CHLORIDE 250 ML 10 ML IV (08:24)
[2024-05-13] MEDS: DOCUSATE SODIUM 100 MG CAPSULE PO ×2 (08:44→20:52)
[2024-05-13] MEDS: ACETAMINOPHEN 300 MG/ 30 MG CODEINE TABLET 1 TAB PO ×2 (10:01→14:18)
[2024-05-13] MEDS: GLYCERIN/WITCH HAZEL PADS 1 PAD TOPICAL (10:57)
[2024-05-13] MEDS: LIDOCAINE VISCOUS 2% 15 ML SOLUTION TOPICAL (15:15)
[2024-05-13] MEDS: NALBUPHINE HCL 10 MG/ML AMPULE IV (15:37)
[2024-05-13] MEDS: HYDROCORTISONE HC 2.5% RECTAL CREAM 30 APPLIC TUBE PR (15:37)
[2024-05-13] MEDS: KETOROLAC TROMETHAMINE 30 MG/ML VIAL IVP (15:38)
--- NOTE | 2024-05-13 15:59 | PC.NURSE ---
1515 Verbal consent obtained from patient per Dr. Lindsay to flora hemorrhoids at bedside. Patient placed in lithotomy position. Large, discolored hemorrhoids noted. Patient's pain 9/10, crying, writhing. Topical lidocaine applied per physician, hemorrhoids lanced with 10blade and drained per Dr. Lindsay. patient tolerates procedure appropriately, orders received for stat order for Toradol 30mg IVP and Nubain 10mg IVP. May also give two percocet as ordered one hour after nubain and toradol. Anusol cream applied by physician with [employer], pressure dressing applied.
[2024-05-13 16:28] LABS: Basophils Percent Auto 0.2 % (0.2-2.0); Eosinophils Percent Auto 0.2 % (0.9-7.0); Immature Granulocytes Abs Auto 0.09 10^3/uL (0.00-0.03); Immature Granulocytes Pct Auto 0.7 % (0.0-0.5); Lymphocytes Absolute Auto 2.3 10^3/uL (1.2-3.8); Lymphocytes Percent Auto 17.4 % (20.5-60.0); Mean Corpuscular Hemoglobin 27.4 pg (26.7-34.0); Mean Corpuscular Volume 85.7 fL (81.0-99.0); Monocytes Absolute Auto 0.6 10^3/uL (0.3-0.8); Monocytes Percent Auto 4.4 % (1.7-12.0); Neutrophils Absolute Auto 10.3 10^3/uL (1.4-6.5); Neutrophils Percent Auto 77.1 % (43.0-75.0); Platelet Count 169 10^3/uL (150-450); Red Cell Distribution Width 14.9 % (11.0-15.0); White Blood Count 13.3 10^3/uL (4.0-11.0)
[2024-05-13 16:38] LABS: Hematocrit 19.7 % (36.0-48.0); Hemoglobin 6.3 g/dL (12.0-16.0)
[2024-05-13] MEDS: OXYCODONE HCL/ACETAMINOPHEN 5MG/325MG 2 TAB PO (16:54)
[2024-05-13] MEDS: OXYCODONE HCL/ACETAMINOPHEN 5MG/325MG 1 TAB PO (23:47)
[2024-05-14] VITALS (15 sets, daily range): BP systolic 114–138; BP diastolic 64–85; PULSE 71–90; TEMP 36.1–37.1
--- NOTE | 2024-05-14 04:08 | PC.NURSE ---
0101-transfusion verified and administered per Tristan and Shanna Adler RN, transfusion beginning did not document properly at the time of the infusion
[2024-05-14] MEDS: IBUPROFEN 600 MG TABLET PO ×2 (04:10→10:58)
--- NOTE | 2024-05-14 04:26 | PC.NURSE ---
0101- vital signs temperature 98.8, BP 138/79, HR 78 and respirations 16 0104-PRBC unit [id number] verified and confirmed by Carlos Calderon RN and Rod Adler RN 0105- PRBC unit [id number] hung per Carlos Calderon RN and Rod Adler RN 0315- Infusion complete, pt tolerated well. see documentation for vital signs
[2024-05-14 06:18] LABS: Mean Corpuscular HGB Conc 30.7 g/dL (29.9-35.2); Mean Corpuscular Hemoglobin 27.5 pg (26.7-34.0); Mean Corpuscular Volume 89.4 fL (81.0-99.0); Mean Platelet Volume 11.5 fL (9.5-13.5); Platelet Count 155 10^3/uL (150-450); Red Blood Count 2.55 10^6/uL (4.20-5.40); Red Cell Distribution Width 15.2 % (11.0-15.0); White Blood Count 12.2 10^3/uL (4.0-11.0)
[2024-05-14 06:22] LABS: Hematocrit 22.8 % (36.0-48.0)
[2024-05-14] MEDS: OXYCODONE HCL/ACETAMINOPHEN 5MG/325MG 2 TAB PO (06:31)
[2024-05-14] MEDS: DOCUSATE SODIUM 100 MG CAPSULE PO (07:55)
[2024-05-14] MEDS: HYDROCORTISONE HC 2.5% RECTAL CREAM 30 APPLIC TUBE PR (07:57)
--- NOTE | 2024-05-14 08:18 | PM.OBPN ---
OB - PN: Subj Subjective Patient comments: no complaints and pain well controlled Gazelle status: doing well Exam Constitutional Vital Signs, click to edit/add: Last Vital Signs Temp 97.2 F L 05/14/24 07:55 Pulse 78 05/14/24 07:54 Resp 16 05/14/24 01:01 BP 126/78 05/14/24 07:54 Pulse Ox 97 05/13/24 11:40 O2 Del Method Room Air 05/14/24 04:37 Documenting provider has reviewed patient's vital signs: yes Common normals: no apparent distress Respiratory Common normals: normal respiratory effort and clear to auscultation bilaterally Cardio Common normals: regular rate and regular rhythm GI Common normals: Normal to inspection, nondistended, normoactive bowel sounds present Extremity Common normals: no calf tenderness Results Labs Labs: Short CBC 05/13/24 05/14/24 Range/Units 16:19 06:06 WBC 13.3 H 12.2 H (4.0-11.0) 10^3/uL Hgb 6.3 L* 7.0 L (12.0-16.0) g/dL Hct 19.7 L* 22.8 L* (36.0-48.0) % Plt Count 169 155 (150-450) 10^3/uL Urinary Catheter Management Urinary Catheter Management Urethral: Cath placed during this visit: yes, but has since been removed by the nurse Insertion date: 05/12/24 Insertion time: 11:55 Removal date: 05/12/24 Removal time: 16:45 OB - PN: A/P Assessment and Plan (1) Acute blood loss anemia: Plan - Vaginal Delivery day: 2 Plan: routine care, discharge home and other (2wks) Time Spent with Patient Time: Total time spent is greater than 50% in coordination of care (as documented) at patient's floor/unit and/or counseling patient: Total time spent with greater than 50% in coordination of care (as documented) at patient's floor/unit and/or counseling patient: less than 15 minutes
== END 2024-05-14 13:45 | disposition home or self-care (01) | DRG 560 ==
PROVIDERS: Admitting Provider Obstetrics & Gynecology; Visit Provider Obstetrics & Gynecology
DX: O70.1 Second degree perineal laceration during delivery (principal); Z3A.40 40 weeks gestation of pregnancy; Z37.0 Single live birth; O90.81 Anemia of the puerperium; D62 Acute posthemorrhagic anemia
CPT/HCPCS: 36415; 36430; 51702; 59050; 59410; 80307; 85025; 85027; 86850; 86900; 86901; 96372; 96374; 96375; 96376; J1885; J2300; J2405; J2795; J3010; P9016

== ENCOUNTER 2025-11-15 09:59 | Outpatient (OUT) | payer MEDICAID, SELFPAY ==
--- OUTSIDE RECORDS SUMMARY | 2025-11-15 10:04 | XMS_ITS | Clinical Summary ---
Author Organization [facility] [employer] [facility] tem Address [id number] [address] [place] [address] Care Team Providers Care Supervisor [facility]ality [facility] Name Role Phone Scotty Hawkins MD Primary Care Provider [phone] Allergies No known active allergies Medications MedicationSigDispense QuantityRefillsLast FilledStart DateEnd DateStatus cyclobenzaprine (FLEXERIL) 10 mg tablet Take 1 tablet (10 mg total) by mouth as needed in the morning and 1 tablet (10 mg total) as needed in the evening for muscle spasms. 10 tablet 04/19/2022ctive Additional Information Patient not taking.Reported on 01/29/2025 ibuprofen (MOTRIN) 800 mg tablet Take 1 tablet (800 mg total) by mouth in the morning and 1 tablet (800 mg total) at noon and 1 tablet (800 mg total) before bedtime. 21 tablet 04/19/2022ctive Additional Information Patient not taking.Reported on 01/29/2025 fluticasone propionate (FLONASE) 50 mcg/actuation nasal spray Administer 1 spray into each nostril in the morning. 16 g 11/28/2023ctive Additional Information Patient not taking.Reported on 01/29/2025 albuterol (PROVENTIL HFA;VENTOLIN HFA) 90 mcg/actuation inhaler Indications:Influenza BInhale 2 puffs every 4 (four) hours as needed for wheezing. 18 g 11/28/2023ctive Additional Information Patient not taking.Reported on 01/29/2025 Active Problems No known active problems Encounters DateTypeDepartmentCare YlulBfmeqpeszqe79/02/2025 3:50 AM EST - 09/18/2025 4:32 AM ESTEmergency [facility] [address] [place] [id number] Nolan Mcdonald, Cellulitis, unspecified cellulitis site (Primary Dx) Discharge Disposition: Home09/18/2025Travelfrom Last 3 Months Immunizations ImmunizationAdministration DatesNext ZquCMkC7904/21/2003,02/27/1999,05/15/1998, 03/15/1998,01/11/1998Hep B / HIB05/15/1998,01/11/1998Hep B, Adolescent or Niwjusewb49/18/4659WnP0310/06/1998,03/15/1998IPV04/21/2003,03/15/1998,01/11/1998 MMR04/21/2003,10/06/1998OPV112/06/19970534Bnlx53/20/8695Qatblzwbq33/05/2003 Social History Tobacco UseTypesPacks/DayYears UsedDateSmoking Tobacco: NeverSmokeless Tobacco: Never Tobacco Cessation:Counseling Given: Not Answered Alcohol UseStandard Drinks/WeekCommentsNot Currently0 (1 standard drink = 0.6 oz pure alcohol)AUDIT-CAnswerDate RecordedQ1: How often do you have a drink containing alcohol?2-3 times a week01/18/2021Q2: How many drinks containing alcohol do you have on a typical day when you are drinking?5 or 6001/18/2021Q3: How often do you have six or more drinks on one occasion?Sirkcn4101/18/2021HQ-2 AnswerDate RecordedTotal Wlbtw6146hildcareAnswerDate RecordedChildcare Tqatqxa6501/16/2021mploymentAnswerDate DvqakkniRngkuiawkiTihruyh86/02/2021Hunger ScreeningAnswerDate RecordedWithin the past 12 months we worried whether our food would run out before we got money to buy more.Never True09/18/2025Within the past 12 months the food we bought just didn't last and we didn't have money to get more.Never True09/18/2025Purpose - LifeAnswerDate RecordedPurpose and direction in avzbRxnvpqe48/02/2021CommentsNoSex and Gender Information ValueDate RecordedSex Assigned at BirthNot on fileLegal DheXkfkls21/04/2015 12:02 PM EDTGender IdentityNot on fileSexual OrientationNot on file Last Filed Vital Signs Vital SignReadingTime TakenCommentsBlood Cqtupofi896/7709/18/2025 4:15 AM EST Sswhp387809/18/2025 4:15 AM VMMYicbyortdfm13.7 ??C (98.1 ??F)09/18/2025 3:55 AM ESTRespiratory Omdf099011/18/2024 4:15 AM ESTOxygen Lfixtmweqn663%09/18/2025 4:15 AM ESTInhaled Oxygen Concentration--Zpdarc65 kg (130 lb)09/18/2025 3:55 AM EST Ialigw821.1 cm (5' 5 )09/18/2025 3:55 AM ESTBody Mass Index21.6309/18/2025 3:55 AM EST Plan of Treatment Health MaintenanceDue DateLast DoneCommentsDepression Taufxfvum65/16/2009Pap Smear2018DTaP,Tdap and Td Vaccines (7 - Td or Tdap), 04/21/2003, 02/27/1999, Additional history existsCOVID-19 Vaccine ( season), 02/15/2021Influenza Cdqepea9807/18/2025dult BMI Dehxuphmy85Tobacco Pnrpclrit94 Medical Devices Not on file Procedures Procedure NamePriorityDate/TimeAssociated DiagnosisCommentsPOCT , URINE (NUCG)Uaimmjw4509/18/2025 5:00 AM EST POCT NURSING URINE MACROSCOPIC EMYboohjn30/02/2025 4:58 AM EST ER EXTRA PSDAMSFTZ61/02/2025 4:01 AM EST from Last 3 Months Results * POCT , urine (09/18/2025 5:00 AM EST)ComponentValueRef RangeTest MethodAnalysis TimePerformed AtPathologist SignaturePO Urine NegativeNegative, Mbtcgfhcmvtav56/02/2025 7:22 AM ESTDETWILER MEMORIAL HOSPITALpecimen (Source)Anatomical Location / LateralityCollection Method / VolumeCollection TimeReceived VskaXzmaa72/02/2025 5:00 AM EST 09/18/2025 7:22 AM EST Narrative Authorizing ProviderResult TypeResult StatusPOINT OF CARE TEST ORDERABLESFinal ResultPerforming OrganizationAddressCity/State/ZIP CodePhone Number [facility] [address] [place] [address], [place] * (ABNORMAL) POCT Nursing Urine Macroscopic UA (09/18/2025 4:58 AM EST)Component ValueRef RangeTest MethodAnalysis TimePerformed AtPathologist SignaturePO Urine Specific Gravity1.0151.010, 1.015, 1.020, 1.5309809/18/2025 7:22 AM EST [facility] Urine Leukocyte EsteraseSmall(A) Zumgmssg37/02/2025 7:22 AM ESTPROT[facility] Urine UrizdobThqtrxpdKbyxxthm12/02/2025 7:22 AM ESTPROT[facility] Urine pH5.05.0, 6.0, 6.5, 7.0, 7.5, 8.0, 8.5, 5. 7:22 AM ESTPROTEST[facility] Urine ProteinNegativeNegative 09/18/2025 7:22 AM [facility]PRO[facility] Urine Glucose IboidiwvLalaklwb05/02/2025 7:22 AM ESTPROGLEND[facility] Urine ZfkxgntJtueclofBybxypsm68/02/2025 7:22 AM ESTPROGLEND[facility] Urine Urobilinogen0.2 E.U./dL09/18/2025 7:22 AM ESTPROT[facility] Urine JoputpbttTboxqqznDfnfkork56/02/2025 7:22 AM ESTPROT[facility] Urine Blood/HGBNegativeNegative 09/18/2025 7:22 AM [facility]imen (Source) Anatomical Location / LateralityCollection Method / VolumeCollection Time Received JeqyNxbsb96/02/2025 4:58 AM EST09/18/2025 7:22 AM EST Narrative Authorizing ProviderResult TypeResult StatusPOINT OF CARE TEST ORDERABLESFinal ResultPerforming OrganizationAddressCity/State/ZIP CodePhone Number [address] [place] [address], * Extra Urine (09/18/2025 4:01 AM EST)ComponentValueRef RangeTest MethodAnalysis TimePerformed AtPathologist SignatureExtra TubeAuto Cjehdnkl41/02/2025 6:02 AM [facility] (Source)Anatomical Location / LateralityCollection Method / VolumeCollection TimeReceived TimeUrineUrine specimen collection, clean catch / UnknownCollection / Ideaypd0709/18/2025 4:01 AM EST09/18/2025 4:43 AM EST Narrative Authorizing ProviderResult TypeResult StatusBret E Tamara DOURINE ORDERABLES Final ResultPerforming OrganizationAddressCity/State/[facility] CodePhone Number [address] [place] [address], from Last 3 Months Insurance * Guarantor: Shadi Hall TypeRelation to PatientDate of PhoneBilling AddressPersonal/SdpnuyKqhu[address] [address] * Guarantor: Shadi Hall TypeRelation to PatientDate of PhoneBilling AddressThird Green Party FyevoazboUhlf[address] [address] Care Teams Team MemberRelationshipSpecialtyStart DateEnd Date Scotty Hawkins MD [address] [place] [address], [address] [place] [address] PCP - GeneralPediatric01/29/25
--- OUTSIDE RECORDS SUMMARY | 2025-11-15 10:04 | XMS_ITS | Clinical Summary ---
Author Organization [facility] Address [address] [place] [address] Care Team Providers Care Metallurgical Technician Name Role Phone Unavailable Primary Care Provider Unavailabl e Allergies No known active allergies Medications No known medications Social History Tobacco UseTypesPacks/DayYears UsedDateSmoking Tobacco: Never Assessed CommentsNoSex and Gender InformationValueDate RecordedSex Assigned at BirthNot on fileLegal NnzBrwjya18/15/2023 6:34 PM EDTGender IdentityNot on fileSexual OrientationNot on file Last Filed Vital Signs Vital SignReadingTime TakenCommentsBlood Smtaeumy361/76007/15/2024 10:50 AM EDT Pulse--Temperature--Respiratory Rate--Oxygen Saturation--Inhaled Oxygen Concentration--Kryvaz16.7 kg (155 lb 12.8 oz)07/15/2024 10:50 AM LOXYapcnz873.1 cm (5' 5 )05/24/2024 12:17 PM EDTBody Mass Index25.9305/24/2024 12:17 PM EDT Plan of Treatment Health MaintenanceDue DateLast DoneCommentsInfluenza Vaccine (#1)07/18/2025 Pneumococcal Vaccine: Pediatrics (0 to 5 Years) and At-Risk Patients (6 to 64 Years)Aged OutNo longer eligible based on patient's age to complete this topic Insurance
--- OUTSIDE RECORDS SUMMARY | 2025-11-15 10:13 | XMS_ITS | CCD ---
Author Organization [facility] Care Team Providers Care Insurance Agency Manager Name Role Phone Christiane Bernstein Unavailable Unavailable Primary Care Provider Unavailshonda LINDSAY, CORA Attending Unavailable CHELSEA, CAMILLE Attending Unavailable ANGÉLICA, CORA Attending Unavailable CHELSEACAMILLE BONDS Attending Unavailable ANGÉLICA, CORA Attending Unavailable ANGÉLICA, CORA Attending Unavailable ANGÉLICA, CORA Attending Unavailable ANGÉLICA, CORA Attending Unavailable ANGÉLICA, CORA Attending Unavailable ANGÉLICA, CORA Attending Unavailable ANGÉLICA, CORA Attending Unavailable ANGÉLICA, CORA Attending Unavailable ANGÉLICA, CORA Attending Unavailable Carlos LEVIN Attending Unavailable ANGÉLICA, Cora R Primary Care Physician KAILEE YOUNGBLOOD Primary Care Unavailable KAILEE YOUNGBLOOD Primary Care Unavailable VERÓNICA MORGAN Attending Unavailable Medications Current Medications MedicationDrug Class(es)DatesSig (Normalized)Sig (Original)amoxicillin 875 mg oral tablet (1 source)Penicillin-class AntibacterialStart: 10-76-4485ywpm 1 tablet by mouth every twelve hoursAmoxicillin 875 MG 1 tablet Orally every 12 hrs for 7 days Nov, ActivemetroNIDAZOLE 500 mg oral tablet (2 sources)Nitroimidazole AntimicrobialStart: 07-15-2024 End: 68-48-8326nybz 1 tablet by mouth in the morningmetroNIDAZOLE (Flagyl) 500 MG tablet Indications: BV (bacterial vaginosis) Take 1 tablet (500 mg) by mouth in the morning and 1 tablet (500 mg) before bedtime. Do all this for 7 days. Do not drink alcohol while taking this medication. 14 tablet 07/15/2024 07/22/2024 Activemiconazole nitrate 20 mg/ml vaginal cream (1 source)Azole AntifungalStart: 96-46-3626Ldqhvkfpbu Nitrate (Monistat 7) 2 % cream Active 1 APPLICATOR VAGINAL Daily at bedtime 45 7 April 23, 2024 12:00am Completed/Discontinued Medications MedicationDrug Class(es)DatesSig (Normalized)Sig (Original)ibuprofen 800 mg oral tablet (2 sources)Nonsteroidal Anti-inflammatory DrugStart: 05-14-2024 End: 80-03-3703ihkz 1 tablet by mouth every eight hoursibuprofen 800 MG tablet Take 800 mg by mouth every 8 (eight) hours 05/14/2024 07/15/2024 Discontinued (Other) Problems Active Problems Problem ClassificationProblemDateDocumented DateEpisodic/ChronicChronic obstructive pulmonary disease and bronchiectasis (1 source)Bronchitis, not specified as acute or chronicEpisodicHemorrhoids (1 source)Residual hemorrhoidal skin tags; Translations: [Residual hemorrhoidal skin tags]Onset: 53-32-0905GdtgbtaiWipbiphelbarw and screening for infectious disease (2 sources)Contact with and (suspected) exposure to other viral communicable diseases; Translations: [Contact with and (suspected) exposure to other viral communicable diseases]EpisodicMycoses (2 sources)Mycosis; Translations: [Candidiasis, unspecified]71-05-0582Srxkawxr Other screening for suspected conditions (not mental disorders or infectious disease) (2 sources)Patient encounter status; Translations: [Encounter for screening for diabetes mellitus]46-90-2418ZmtslhdjIqwwl skin disorders (1 source)Skin gla52-55-0366AmwluqunVfjzjb media and related conditions (1 source)Otitis media, unspecified, left earEpisodicSkin and subcutaneous tissue infections (1 source)Cellulitis, unspecified; Translations: [Cellulitis, unspecified]Onset: 09-04-4147GgdnhgmdHdexvmegvtve (1 source)CystOnset: 53-21-4001Yiufczazeeks (1 source)Cold Like SymptomsOnset: 38-27-2305Zjpfafnmyppz (1 source)Sore Throat, Body Aches, Cough, FeverOnset: 01-29-2025 Past or Other Problems Problem ClassificationProblemDateDocumented DateEpisodic/ChronicInflammatory diseases of female pelvic organs (2 sources)Bacterial vaginosis; Translations: [Acute vaginitis]07-15-2024 EpisodicOther and delivery including normal (4 sources)Second trimester ; Translations: [Encounter for supervision of normal , unspecified, second trimester]87-83-8858FciatxwjXoagk upper respiratory infections (1 source)Streptococcal pharyngitis; Translations: [Streptococcal pharyngitis] Onset: 79-52-8099Mdowfyvn Results Test NameValueInterpretationReference RangeFacilityPOCT NURSING URINE MACROSCOPIC UAon 80-41-4414ABLJYDGYE NURNegativeNormalNegativeGood Samaritan HospitalComment on above:Performed By: #### NUM #### [address] [address] VIRBLOOD/HGB NURNegativeNormalNegativeGood Samaritan HospitalComment on above:Performed By: #### NUM #### [address] [address] VIRGLUCOSE NURNegativeNormalNegativeGood Samaritan Hospital Comment on above:Performed By: #### NUM #### [address] [address] VIRKETONES NURNegativeNormalNegMercy Health St. Charles Hospital Comment on above:Performed By: #### NUM #### [address] [address] VIRLEUKOCYTE ESTERASE NURSmallAbnormalNegativeGood Samaritan HospitalComment on above:Performed By: #### NUM #### [address] [address] VIRNITRITE NURNegativeNormmdNegativeGood Samaritan Hospital Comment on above:Performed By: #### NUM #### [facility] ([address] [address] VIRPH NUR5.6Otwlgc4.0, 6.0, 6.5, 7.0, 7.5, 8.0, 8.5, 5.5 [facility] Samaritan HospitalComment on above:Performed By: #### NUM #### [facility] ([address] [address] VIRPROTEIN NURNegativeNormalNegativeGood Samaritan Hospital Comment on above:Performed By: #### NUM #### [facility] ([address] [address] VIRSPECIFIC GRAVITY NUR1.501Ojruyb3.010, 1.015, 1.020, 1.025 [facility]itan HospitalComment on above:Performed By: #### NUM #### [facility] ([address] [address] VIRUROBILINOGEN NUR0.2 E.U./dLNormalGood Samaritan Hospital Comment on above:Performed By: #### NUM #### [facility] ([address] [address] VIRPOCT , URINE (NUCG)on 88-19-2284Nqgk HCG ( test) Ql (U)NegativeNormalNegative, IndeterminateGood Samaritan HospitalComment on above:Performed By: #### NUCG #### [facility] ([address] [address] VIRRAPID STREP SCR NURSINGon 01-29-2025S. pyogenes Ag EIA Ql (Throat)PositiveAbnormalNEGGood Samaritan HospitalComment on above:Performed By: #### 6556-5 #### [facility] ([id number]) [address] [place] [address], [address] [place], [place] [address]UKCW/FLU A+B/RSV by NAAT/Molecularon 36-88-1585HUZA/FLU A+B/RSV by NAAT/MolecularFLU A PCR Negative (qualifier value) FLU B PCR Negative (qualifier value) RSV by PCR Negative (qualifier [...] operators who are performing tests using either [employer] DX or [employer] systems and is limited to laboratories that [...] specimen repeat. Fact Sheet for Healthcare Providers: https://www.fda.gov/media/345543/download Fact Sheet for Patients: https://www.fda.gov/media/749178/downloadNormalProMedica Kindred HospitalComment on above:Performed By: #### COVFLR #### [facility] ([id number]) [address] [place] [address], [address] [place], [place] [address]Ndukgtqhzc Visit Summaryon 59-94-5425Vicjsvhwze Visit Summary Ambulatory Visit Summary SHADI WHEAT :1995 Visit Date:06/30/2024 Ambulatory Visit Instructions Your Diagnosis Anorectal skin tags Your Care Team Attending Physician - OLLIE STRONG, Carlos Gonzalez Primary Care Physician - Cora LINDSAY DO Procedures Performed None. Discharge Vitals Heart Rate (Peripheral) 72 Respiratory Rate 16 Blood Pressure 112/74 Height 165 cm Height 65 in Weight 70 kg Weight 154 lb BMI 25.71 Allergies No Known Allergies No Known Medication Allergies Problems Ongoing - Any problem that you are currently receiving treatment for. Anorectal skin tags Patient Survey You may receive a survey via text or e-mail asking about your office visit. Please share your experience with us by completing your survey. We appreciate your feedback and thank you for choosing us for your care. [facility] HospitalAmb[facility] Summary Ambulatory Visit Summary SHADI WHEAT :1995 Visit Date:06/30/2024 Ambulatory Visit Instructions Your Care Team Attending Physician - OLLIE STRONG, Carlos Gonzalez Primary Care Physician - Cora LINDSAY DO Procedures Performed None. Discharge Vitals Heart Rate (Peripheral) 72 Respiratory Rate 16 Blood Pressure 112/74 Height 165 cm Height 65 in Weight 70 kg Weight 154 lb BMI 25.71 Allergies No Known Allergies No Known Medication Allergies Patient Survey You may receive a survey via text or e-mail asking about your office visit. Please share your experience with us by completing your survey. We appreciate your feedback and thank you for choosing us for your care. [facility] HospitalUS OB GROWTHon 96-58-3012[place] [address] Ultrasound Report Signed Patient: SHADI WHEAT MR#: [id number] : 1995 Acct:[id number] Age/Sex: 28 / F ADM Date: 04/28/24 Loc: [facility] Attending Dr: Cora Lindsay D.O. Ordering Physician: Cora Lindsay D.O. Date of Service: 04/28/24 Procedure(s): US OB growth Accession Number(s): [id number] cc: Cora Lindsay D.O.; Physician,Non-Staff MLulu [place] [id number] Patient Name: SHADI WHEAT MRN: [facility]:[id number] date: 1995 Sex: F Assigned Patient Location: [facility] Current Patient Location: [facility] Accession/Order Number: [id number] Exam Date: 04/28/2024 13:02 Report Date: 04/28/2024 14:11 At the request of: CORA LINDSAY Procedure: US OB growth EXAMINATION: US OB growth HISTORY: LARGE FOR GESTATIONAL AGE COMPARISON: No relevant comparison available. FINDINGS: Heart Rate: 151.0 bpm Amniotic Fluid Volume: 16.4 cm Number: 1.0 Position: Cephalic presentation, longitudinal lie Maximum Vertical Pocket: 5.0 cm cm 3.4 cm cm 4.5 cm cm 3.5 cm cm BIOMETRY: BPD: 9.2 cm cm; 37 weeks 1 days; 46% HC: 32.8 cmcm; 37 weeks 2 days , 13% AC: 34.2 cm cm; 38 weeks 1 days, 64% FL: 7.6 cm cm; 39 weeks 0 days; 73.2 % % EFW: 3397.2 grams, 7 lbs. 8 oz., 60% FL/AC: 22.4 FL/BPD: 83.4 HC/AC: 1.0 GESTATIONAL AGE: Age by EDC: 38 weeks 2 days NICOLE by EDC: 05/10/2024 Age by US: 37 weeks 6 days NICOLE by US: 05/13/2024 US/US OB growth IMPRESSION: Normal interval growth Electronically authenticated by: JIMBO LEMON Date: 04/28/2024 14:11 Dictated By: Jimbo Lemon M.D. Signed By: 04/28/24 1414 DD/ 10 TD/TT: Plaster Patternmaker:TBHRadiology, Radiologist, - 04/28/2024 [place] [address] Ultrasound Report Signed Patient: SHADI WHEAT MR#: [id number] : 1995 Acct:[id number] Age/Sex: 28 / F ADM Date: 04/28/24 Loc: [facility] Attending Dr: Cora Lindsay D.O. Ordering Physician: Cora Lindsay D.O. Date of Service: 04/28/24 Procedure(s): US OB growth Accession Number(s): [id number] cc: Cora Lindsay D.O.; Physician,Non-Staff MLulu [place] [address] Patient Name: SHADI WHEAT MRN: [facility]:[id number] date: 1995 Sex: F Assigned Patient Location: [facility] Current Patient Location: [facility] Accession/Order Number: [id number] Exam Date: 04/28/2024 13:02 Report Date: 04/28/2024 14:11 At the request of: CORA LINDSAY Procedure: US OB growth EXAMINATION: US OB growth HISTORY: LARGE FOR GESTATIONAL AGE COMPARISON: No relevant comparison available. FINDINGS: Heart Rate: 151.0 bpm Amniotic Fluid Volume: 16.4 cm Number: 1.0 Position: Cephalic presentation, longitudinal lie Maximum Vertical Pocket: 5.0 cm cm 3.4 cm cm 4.5 cm cm 3.5 cm cm BIOMETRY: BPD: 9.2 cm cm; 37 weeks 1 days; 46% HC: 32.8 cmcm; 37 weeks 2 days , 13% AC: 34.2 cm cm; 38 weeks 1 days, 64% FL: 7.6 cm cm; 39 weeks 0 days; 73.2 % % EFW: 3397.2 grams, 7 lbs. 8 oz., 60% FL/AC: 22.4 FL/BPD: 83.4 HC/AC: 1.0 GESTATIONAL AGE: Age by EDC: 38 weeks 2 days NICOLE by EDC: 05/10/2024 Age by US: 37 weeks 6 days NICOLE by US: 05/13/2024 US/US OB growth IMPRESSION: Normal interval growth Electronically authenticated by: JIMBO LEMON Date: 04/28/2024 14:11 Dictated By: Jimbo Lemon M.D. Signed By: 04/28/24 1414 DD/ 1411 TD/TT: Plaster Patternmaker: THAO HealthcareRadiology Study observation (narrative)NOMSantosh HealthcareUS OB GROWTHOrdered By: Radiologist Radiology on 97-86-3902PGNW [facility] Work Phone: no Panel InformationOrdered By: Radiologist Radiology on 93-06-5156PLLI [facility] Work Phone: no Panel Informationon 24-59-2409Bezvypstr Study observation (narrative)THAO DysonUS OB CERVICAL LENGTHon 82-12-5326MgzLos [place] [address] Ultrasound Report Signed Patient: SHADI WHEAT MR#: [id number] : 1995 Acct:[id number] Age/Sex: 28 / F ADM Date: 02/18/24 Loc: [facility] Attending Dr: Camille Tran Ordering Physician: Camille Tran Date of Service: 02/18/24 Procedure(s): US OB cervical length Accession Number(s): [id number] cc: Camille Tran; Physician,Non-Staff M.D. [place] [id number] Patient Name: SHADI WHEAT MRN: [id number] date: 1995 Sex: F Assigned Patient Location: [facility] Current Patient Location: [facility] Accession/Order Number: [id number] Exam Date: 02/18/2024 10:29 Report Date: 02/18/2024 11:17 At the request of: CAMILLE TRAN Procedure: US OB cervical length EXAMINATION: US OB placenta, US OB cervical length HISTORY: LOW LYING PLACENTA COMPARISON: Ultrasound OB anatomy 01/21/2024 FINDINGS: PLACENTA: Posterior with lower margin 3.2 cm from os. Numerous prominent vessels/vascular channels between placenta and posterior uterine wall; not appreciably changed. CERVIX LENGTH: 3.8 cm in length, closed. HEART RATE: 137 bpm OTHER: None. US/US OB cervical length IMPRESSION: 1. Posterior placenta which has migrated cephalad; now 3.2 cm from internal os. 2. Single live intrauterine . 3. Closed cervix 3.8 cm in length. Electronically authenticated by: YUSUF HERNANDEZ Date: 02/18/2024 11:17 Dictated By: Yusuf Hernandez M.D. Signed By: 02/18/24 112 DD/ 16 TD/TT: Plaster Patternmaker:SALOHRadiology, Radiologist, - 02/18/2024 [place] [address] Ultrasound Report Signed Patient: SHADI WHEAT MR#: [id number] : 1995 Acct:[id number] Age/Sex: 28 / F ADM Date: 02/18/24 Loc: [facility] Attending Dr: Camille Tran Ordering Physician: Camille Tran Date of Service: 02/18/24 Procedure(s): US OB cervical length Accession Number(s): [id number] cc: Camille Tran; Physician,Non-Staff Alaina [place] [id number] Patient Name: SHADI WHEAT MRN: [id number] date: 1995 Sex: F Assigned Patient Location: [facility] Current Patient Location: [facility] Accession/Order Number: [id number] Exam Date: 02/18/2024 10:29 Report Date: 02/18/2024 11:17 At the request of: CAMILLE TRAN Procedure: US OB cervical length EXAMINATION: US OB placenta, US OB cervical length HISTORY: LOW LYING PLACENTA COMPARISON: Ultrasound OB anatomy 01/21/2024 FINDINGS: PLACENTA: Posterior with lower margin 3.2 cm from os. Numerous prominent vessels/vascular channels between placenta and posterior uterine wall; not appreciably changed. CERVIX LENGTH: 3.8 cm in length, closed. HEART RATE: 137 bpm OTHER: None. US/US OB cervical length IMPRESSION: 1. Posterior placenta which has migrated cephalad; now 3.2 cm from internal os. 2. Single live intrauterine . 3. Closed cervix 3.8 cm in length. Electronically authenticated by: YUSUF HERNANDEZ Date: 02/18/2024 11:17 Dictated By: Yusuf Hernandez M.D. Signed By: 02/18/24 112 DD/ 16 TD/TT: Plaster Patternmaker: THAO Mei OB PLACENTAon 31-95-3831EliLos [place] [address] Ultrasound Report Signed Patient: SHADI WHEAT MR#: [id number] : 1995 Acct:[id number] Age/Sex: 28 / F ADM Date: 02/18/24 Loc: [facility] Attending Dr: Camille Tran Ordering Physician: Camille Tran Date of Service: 02/18/24 Procedure(s): US OB placenta Accession Number(s): [id number] cc: Camille Tran; Physician,Non-Staff MLulu [place] [id number] Patient Name: SHADI WHEAT MRN: [facility]:[id number] date: 1995 Sex: F Assigned Patient Location: [facility] Current Patient Location: [facility] Accession/Order Number: [id number] Exam Date: 02/18/2024 10:29 Report Date: 02/18/2024 11:17 At the request of: CAMILLE TRAN Procedure: US OB placenta EXAMINATION: US OB placenta, US OB cervical length HISTORY: LOW LYING PLACENTA COMPARISON: Ultrasound OB anatomy 01/21/2024 FINDINGS: PLACENTA: Posterior with lower margin 3.2 cm from os. Numerous prominent vessels/vascular channels between placenta and posterior uterine wall; not appreciably changed. CERVIX LENGTH: 3.8 cm in length, closed. HEART RATE: 137 bpm OTHER: None. US/US OB placenta IMPRESSION: 1. Posterior placenta which has migrated cephalad; now 3.2 cm from internal os. 2. Single live intrauterine . 3. Closed cervix 3.8 cm in length. Electronically authenticated by: YUSUF HERNANDEZ Date: 02/18/2024 11:17 Dictated By: Yusuf Hernandez M.D. Signed By: 02/18/24 1120 DD/ 1117 TD/TT: Plaster Patternmaker:ANABELadiologrosy, Radiologist, - 02/18/2024 [facility] [place] [id number] Ultrasound Report Signed Patient: SHADI WHEAT MR#: [id number] : 1995 Acct:[id number] Age/Sex: 28 / F ADM Date: 02/18/24 Loc: [facility] Attending Dr: Camille Tran Ordering Physician: Camille Tran Date of Service: 02/18/24 Procedure(s): US OB placenta Accession Number(s): [id number] cc: Camille Tran; Physician,Non-Staff MLulu [place] [id number] Patient Name: SHADI WHEAT MRN: [id number]:[id number] date: 1995 Sex: F Assigned Patient Location: [facility] Current Patient Location: [facility] Accession/Order Number: [id number] Exam Date: 02/18/2024 10:29 Report Date: 02/18/2024 11:17 At the request of: CAMILLE TRAN Procedure: US OB placenta EXAMINATION: US OB placenta, US OB cervical length HISTORY: LOW LYING PLACENTA COMPARISON: Ultrasound OB anatomy 01/21/2024 FINDINGS: PLACENTA: Posterior with lower margin 3.2 cm from os. Numerous prominent vessels/vascular channels between placenta and posterior uterine wall; not appreciably changed. CERVIX LENGTH: 3.8 cm in length, closed. HEART RATE: 137 bpm OTHER: None. US/US OB placenta IMPRESSION: 1. Posterior placenta which has migrated cephalad; now 3.2 cm from internal os. 2. Single live intrauterine . 3. Closed cervix 3.8 cm in length. Electronically authenticated by: YUSUF HERNANDEZ Date: 02/18/2024 11:17 Dictated By: Yusuf Hernandez M.D. Signed By: 02/18/24 1120 DD/ 1117 TD/TT: Plaster Patternmaker: THAO Olvera Panel InformationOrdered By: Radiologist Radiology on 01-72-0857[employer] Work Phone: No Panel Informationon 33-97-4024Yhefvnywa Study observation (narrative)THAO Mei OB ANATOMYon 28-78-3045[address] [address] Ultrasound Report Signed Patient: SHADI WHEAT MR#: [id number] : 1995 Acct:[id number] Age/Sex: 28 / F ADM Date: 01/21/24 Loc: [facility] Attending Dr: Cora Lindsay D.O. Ordering Physician: Cora Lindsay D.O. Date of Service: 01/21/24 Procedure(s): US OB anatomy Accession Number(s): [id number] cc: Cora Lindsay D.O.; Physician,Non-Staff M.DRussell [place] [id number] Patient Name: SHADI WHEAT MRN: [id number] date: 1995 Sex: F Assigned Patient Location: [facility] Current Patient Location: [facility] Accession/Order Number: [id number] Exam Date: 01/21/2024 09:33 Report Date: 01/21/2024 11:04 At the request of: CORA LINDSAY Procedure: US OB anatomy EXAMINATION: US OB anatomy, US OB cervical length HISTORY: ANATOMY COMPARISON: No relevant comparison available. TECHNIQUE: Transabdominal sonographic examination was performed for obstetrical and evaluation. FINDINGS: Number: 1 Heart Rate: 148.0 bpm H.B. /min Amniotic Fluid Volume: Subjectively normal position: Cephalic presentation, longitudinal lie Placental Location: POSTERIOR , the placental edge is 0.8 cm from the internal os Cervix Length: 4 cm , closed Normal anatomy: Lateral ventricles, cerebellum, posterior fossa, nose, lips, orbits, four-chamber heart, RVOT, LVOT, diaphragm, stomach, kidneys, abdominal cord insertion, bladder, umbilical arteries, three-vessel cord, spine, extremities BIOMETRY: BPD: 5.6 cm 23 weeks 1 days , 11% HC: 21.3 cm 23 weeks 2 days, 7% AC: 19.1 cm 23 weeks 6 days, 26% FL: 4.4 cm 24 weeks 3 days , 40% EFW:643.9 grams; 1 lb, 7 oz, 26% FL/AC: 23.0 FL/BPD: 77.8 HC/AC: 1.1 GESTATIONAL AGE: Age by EDC: 24 weeks 2 days Age by current US: 23 weeks 5 days NICOLE by current US: 04/24/24 NICOLE by EDC: 05/10/24 US/US OB anatomy IMPRESSION: Normal anatomy scan *Reference: [employer] Practice Guideline for the performance of Obstetric Ultrasound Examinations, August 17, 2007. Electronically authenticated by: JIMBO LEMON Date: 01/21/2024 11:04 Dictated By: Jimbo Lemon M.D. Signed By: 01/21/24 1107 DD/ 1104 TD/TT: Plaster Patternmaker:TBHRadiology, Radiologist, MD - 01/21/2024 [place] [address] Ultrasound Report Signed Patient: SHADI WHEAT MR#: [id number] : 1995 Acct:[id number] Age/Sex: 28 / F ADM Date: 01/21/24 Loc: [facility] Attending Dr: Cora Lindsay D.O. Ordering Physician: Cora Lindsay D.O. Date of Service: 01/21/24 Procedure(s): US OB anatomy Accession Number(s): [id number] cc: Cora Lindsay D.O.; Physician,Non-Staff Alaina [place] [id number] Patient Name: SHADI WHEAT MRN: [id number]:[id number] date: 1995 Sex: F Assigned Patient Location: [facility] Current Patient Location: [facility] Accession/Order Number: [id number] Exam Date: 01/21/2024 09:33 Report Date: 01/21/2024 11:04 At the request of: CORA LINDSAY Procedure: US OB anatomy EXAMINATION: US OB anatomy, US OB cervical length HISTORY: ANATOMY COMPARISON: No relevant comparison available. TECHNIQUE: Transabdominal sonographic examination was performed for obstetrical and evaluation. FINDINGS: Number: 1 Heart Rate: 148.0 bpm H.B. /min Amniotic Fluid Volume: Subjectively normal position: Cephalic presentation, longitudinal lie Placental Location: POSTERIOR , the placental edge is 0.8 cm from the internal os Cervix Length: 4 cm , closed Normal anatomy: Lateral ventricles, cerebellum, posterior fossa, nose, lips, orbits, four-chamber heart, RVOT, LVOT, diaphragm, stomach, kidneys, abdominal cord insertion, bladder, umbilical arteries, three-vessel cord, spine, extremities BIOMETRY: BPD: 5.6 cm 23 weeks 1 days , 11% HC: 21.3 cm 23 weeks 2 days, 7% AC: 19.1 cm 23 weeks 6 days, 26% FL: 4.4 cm 24 weeks 3 days , 40% EFW:643.9 grams; 1 lb, 7 oz, 26% FL/AC: 23.0 FL/BPD: 77.8 HC/AC: 1.1 GESTATIONAL AGE: Age by EDC: 24 weeks 2 days Age by current US: 23 weeks 5 days NICOLE by current US: 04/24/24 NICOLE by EDC: 05/10/24 US/US OB anatomy IMPRESSION: Normal anatomy scan *Reference: [employer] Practice Guideline for the performance of Obstetric Ultrasound Examinations, August 17, 2007. Electronically authenticated by: JIMBO LEMON Date: 01/21/2024 11:04 Dictated By: Jimbo Lemon M.D. Signed By: 01/21/24 1107 DD/ 1104 TD/TT: Plaster Patternmaker: THAO Mei OB CERVICAL LENGTHon 10-14-4018KfwLos [place] [address] Ultrasound Report Signed Patient: SHADI WHEAT MR#: [id number] : 1995 Acct:[id number] Age/Sex: 28 / F ADM Date: 01/21/24 Loc: [facility] Attending Dr: Cora Lindsay D.O. Ordering Physician: Cora Lindsay D.O. Date of Service: 01/21/24 Procedure(s): US OB cervical length Accession Number(s): [id number] cc: Cora Lindsay D.O.; Physician,Non-Staff Alaina The [address] [address] Patient Name: SHADI WHEAT MRN: [id number]:[id number] date: 1995 Sex: F Assigned Patient Location: [facility] Current Patient Location: [facility] Accession/Order Number: [id number] Exam Date: 01/21/2024 09:33 Report Date: 01/21/2024 11:04 At the request of: CORA ANGÉLICA Procedure: US OB cervical length EXAMINATION: US OB anatomy, US OB cervical length HISTORY: ANATOMY COMPARISON: No relevant comparison available. TECHNIQUE: Transabdominal sonographic examination was performed for obstetrical and evaluation. FINDINGS: Number: 1 Heart Rate: 148.0 bpm H.B. /min Amniotic Fluid Volume: Subjectively normal position: Cephalic presentation, longitudinal lie Placental Location: POSTERIOR , the placental edge is 0.8 cm from the internal os Cervix Length: 4 cm , closed Normal anatomy: Lateral ventricles, cerebellum, posterior fossa, nose, lips, orbits, four-chamber heart, RVOT, LVOT, diaphragm, stomach, kidneys, abdominal cord insertion, bladder, umbilical arteries, three-vessel cord, spine, extremities BIOMETRY: BPD: 5.6 cm 23 weeks 1 days , 11% HC: 21.3 cm 23 weeks 2 days, 7% AC: 19.1 cm 23 weeks 6 days, 26% FL: 4.4 cm 24 weeks 3 days , 40% EFW:643.9 grams; 1 lb, 7 oz, 26% FL/AC: 23.0 FL/BPD: 77.8 HC/AC: 1.1 GESTATIONAL AGE: Age by EDC: 24 weeks 2 days Age by current US: 23 weeks 5 days NICOLE by current US: 04/24/24 NICOLE by EDC: 05/10/24 US/US OB cervical length IMPRESSION: Normal anatomy scan *Reference: AIUM Practice Guideline for the performance of Obstetric Ultrasound Examinations, August 17, 2007. Electronically authenticated by: JIMBO LEMON Date: 01/21/2024 11:04 Dictated By: Jimbo Lemon M.D. Signed By: 01/21/24 1107 DD/ 1104 TD/TT: Plaster Patternmaker:TBHRadiology, Radiologist, - 01/21/[address] [address] Ultrasound Report Signed Patient: SHADI WHEAT MR#: [id number] : 1995 Acct:[id number] Age/Sex: 28 / F ADM Date: 01/21/24 Loc: [facility] Attending Dr: Cora Lindsay D.O. Ordering Physician: Cora Lindsay D.O. Date of Service: 01/21/24 Procedure(s): US OB cervical length Accession Number(s): [id number] cc: Cora Lindsay D.O.; Physician,Non-Staff [place] [id number] Patient Name: SHADI WHEAT MRN: [facility]:[id number] date: 1995 Sex: F Assigned Patient Location: [facility] Current Patient Location: [facility] Accession/Order Number: [id number] Exam Date: 01/21/2024 09:33 Report Date: 01/21/2024 11:04 At the request of: CORA LINDSAY Procedure: US OB cervical length EXAMINATION: US OB anatomy, US OB cervical length HISTORY: ANATOMY COMPARISON: No relevant comparison available. TECHNIQUE: Transabdominal sonographic examination was performed for obstetrical and evaluation. FINDINGS: Number: 1 Heart Rate: 148.0 bpm H.B. /min Amniotic Fluid Volume: Subjectively normal position: Cephalic presentation, longitudinal lie Placental Location: POSTERIOR , the placental edge is 0.8 cm from the internal os Cervix Length: 4 cm , closed Normal anatomy: Lateral ventricles, cerebellum, posterior fossa, nose, lips, orbits, four-chamber heart, RVOT, LVOT, diaphragm, stomach, kidneys, abdominal cord insertion, bladder, umbilical arteries, three-vessel cord, spine, extremities BIOMETRY: BPD: 5.6 cm 23 weeks 1 days , 11% HC: 21.3 cm 23 weeks 2 days, 7% AC: 19.1 cm 23 weeks 6 days, 26% FL: 4.4 cm 24 weeks 3 days , 40% EFW:643.9 grams; 1 lb, 7 oz, 26% FL/AC: 23.0 FL/BPD: 77.8 HC/AC: 1.1 GESTATIONAL AGE: Age by EDC: 24 weeks 2 days Age by current US: 23 weeks 5 days NICOLE by current US: 04/24/24 NICOLE by EDC: 05/10/24 US/US OB cervical length IMPRESSION: Normal anatomy scan *Reference: AIUM Practice Guideline for the performance of Obstetric Ultrasound Examinations, August 17, 2007. Electronically authenticated by: JIMBO LEMON Date: 01/21/2024 11:04 Dictated By: Jimbo Lemon M.D. Signed By: 01/21/24 1107 DD/ 1104 TD/TT: Plaster Patternmaker: THAO [facility] CampusUrinalysis macro (dipstick) panel (U)on 79-81-4123Dbqjacxav, UA NegativeNegative - 4(70) +++ mg/dLNOMS HealthcareBlood, UANegativeNegative - 50 Eloy/mcLNOMS HealthcareClarity, UAClearNOMS HealthcareColor, UAYellowNOMS HealthcareGlucose, UANegativeNegative - 2000(110) ++++ mg/dLNOMS Healthcare Interpretation and review of laboratory resultsNormalNOAR HealthcareKetones, UA NegativeNegative - 160(16) ++++ mg/dLNOMS HealthcareLeukocytes, UANegative Negative - 500+++ Srinivas/mcLNOAR HealthcareNitrite, UANegativeNegative - Positive N[facility] HealthcarepH, UA5.55 - 9NOMS HealthcareProtein, UANegativeNegative - 2000(20) ++++ mg/dLNOMS HealthcareSpec Grav, UA1.0301 - 1.03N[facility] Urobilinogen, UA0.20.2 - 12 mg/dLNOMS HealthcareNOMS HealthcareCOVID + FLU Quick Testingon 23-75-1994QBUF-CoV-2 (COVID-19) RNA DANNA+probe Ql (Unsp spec)Negative [facility] Trudev Other COVID + FLU Quick TestingNegativeFunk [employer] Other Quick Strepon 11-21-2022S. pyogenes Org specific cx Ql (Throat)NegativeFunk [employer] Other Quick StrepNewsFixed Other Vital Signs Date TimeVital SignValuePerforming HjuvogdpmMuyglbyu05-84-6790 10:50-0400Body mass index (BMI) [Ratio]25.93 kg/c1Xnmof Angélica DO Work Phone: [facility] HospitalLwqmvzvekp56-80-8558 10:50-0400Body .67 kgCorey Angélica DO Work Phone: [facility] HospitalDbzycrluca49-29-3348 10:50-0400Diastolic blood okltxmxj80 mm[Hg]Cora Angélica DO Work Phone: [facility] HospitalAijpljahyc96-73-6143 10:50-0400Systolic blood ozaciihe252 mm[Hg]Cora Angélica DO Work Phone: [facility] HospitalJqyywtxgmj04-59-8631 15:25-0400Blood Pressure LocationMichael NILL [phone]-CbpxiKindred Healthcare08-14-2024 15:25-0400Diastolic blood vzeeguos94 mm[Hg]Carlos NILL [phone]-GahqlKindred Healthcare08-14-2024 15:25-0400Heart rate72 /minMichael NILL [phone]-SxftgKindred Healthcare08-14-2024 15:25-0400Respiratory rate16 /minMichael NILL [phone]-KpfzwKindred Healthcare08-14-2024 15:25-0400Systolic blood yaoszsrq526 mm[Hg]Carlos NILL [phone]-EvkngKindred Healthcare06-07-2024 13:43-0400Body otuxma346.1 cmC[facility]06-[facility]-2024 13:43-0400Body mass index (BMI) [Ratio]29.4 kg/l2OdmbxzcsjCleveland Clinic [facility]06-07-2024 13:43-0400Body tijonewrccy57.5 [degF][facility]06-07-2024 13:43-0400Body rpfnir44.28 kgC[facility] 04-23-2024 13:43-0400Diastolic blood spekbbtq76 mm[Hg][facility]06-07-2024 13:43-0400Heart rate80 /[facility] 04-23-2024 13:43-0400Respiratory rate16 /[facility] 04-23-2024 13:43-5201HgV4% (BldA) [Mass fraction]98 %[facility]06-07-2024 13:43-0400Systolic blood pvxugpnn675 mm[Hg][facility]02-07-2024 09:36-0500Body cikmqh52.68 kgCamille QUEEN Work Phone: [facility] Ajpxzdztly28-30-7544 09:36-0500Diastolic blood sbidftnh65 mm[Hg]Camille QUEEN Work Phone: [facility] Giqksozfpk19-14-6808 09:36-0500Systolic blood dzsgibge942 mm[Hg]Camille QUEEN Work Phone: [facility] Aoikmdkvfb51-53-7198 18:45-0500Body .1 cmSisrael Bernstein Other News[employer] Other 01-05-2023 18:45-0500Body mass index (BMI) [Ratio] 23.29 kg/w2Xjzavtatkmichel Bernstein Other News[employer] Other 01-05-2023 18:45-0500Body [degF] Christiane Bernstein Other News[employer] Other 340084-57-8683 18:45-0500Body uoiely39.5 kgStmichel Bernstein Other News[employer] Other 417910-75-0743 18:45-0500Diastolic blood mm[Hg] Christiane Bernstein Other News[employer] Other 01-05-2023 18:45-0500Respiratory rate16 /minStepakilie Day Other nort [employer] Other 01-05-2023 18:45-1160WmO2% (BldA) [Mass fraction]100 % Christiane Bernstein Other noVPHealth Seo[employer]ult Other 01-05-2023 18:45-0500Systolic blood zrsogxzv882 mm[Hg] Christiane Bernstein Other noEaglEyeMed Other Encounters Encounter DateEncounter TypeCare ProviderFacilityStart: 09-18-2025 End: 52-49-4962Orzoozfqk department patient visitJODIANE Mendoza [facility]tart: 01-29-2025 End: 72-66-9190Zyspwwgdt department patient visitJODIANE Mendoza [facility] HospitalStart: 07-15-2024 End: 62-26-3525Hvfhpbpgqp care visitCorey Angélica VERDE Work Phone: [facility] OBComment on above:6 weeks follow-up; BV (bacterial vaginosis)Start: 97-19-3828cqvfewpvspNsljcss R NILLFacility:[facility] Centertart: 06-30-2024 End: 38-13-1251Hfypfpv encounter procedureMichael R NILL [phone]-Nogvn [facility] [place] Start: 05-25-2024 End: 21-06-2327jvjoswwnnjBICJT FAZIONot AvailableStart: 05-24-2024 End: 19-83-5337ggjqmxxgjbDGDHX FAZIONot AvailableStart: 17-69-0216uzafmsyssm Carlos NILLFacility:[facility] HospitalevueStart: 05-05-2024 End: 22-01-8337orjrdgjnbyFNTTT FAZIONot AvailableStart: 04-28-2024 End: 23-62-8473Rtdkcoajd Result EncounterCorey Angélica DO Work Phone: n[facility] External Department UnsolicitedStart: 04-28-2024 End: 92-44-5216Woterchxc Result EncounterCorey Angélica DO Work Phone: n[facility] External Department UnsolicitedStart: 04-28-2024 End: 73-47-3367abpgkqcyfjETEZN FAZIONot AvailableStart: 04-23-2024 End: 45-38-6563wywrekhlnaPpexmlzouOhio State East Hospital Work Phone: Start: 04-23-2024 End: 12-79-2111Cwarabn encounter procedureScotland Memorial [facility] Work Phone: Start: 04-20-2024 End: 79-58-1642kbptmypamnJXNTW FAZIONot AvailableStart: 04-13-2024 End: 84-65-0184ycvdffzuxyOQDQS FAZIONot AvailableStart: 04-05-2024 End: 93-37-6515sbxyctcuyaAFQNI FAZIONot AvailableStart: 03-22-2024 End: 05-68-1008tyhbukyzkzBWUWW FAZIONot AvailableStart: 03-04-2024 End: 70-73-1737khqlbmbirjHDKUV FAZIONot AvailableStart: 02-18-2024 End: 89-28-0873Dydwoivfp Result EncounterCamille QUEEN Work Phone: noms External Department UnsolicitedStart: 02-18-2024 End: 47-58-6382Yfvnnvxnw Result EncounterAmy Chelsea QUEEN Work Phone: noms External Department UnsolicitedStart: 02-18-2024 End: 94-76-7318tfnstahuffLKF Crispin AvailableStart: 01-21-2024 End: 62-88-0946Uxoekstxg Result EncounterCorey Angélica DO Work Phone: noms External Department UnsolicitedStart: 01-21-2024 End: 36-57-4256Rilunckhq Result EncounterCorey Angélica DO Work Phone: [facility] External Department UnsolicitedStart: 01-21-2024 End: 99-02-8735rhafrryhhrMGGDW FAZIONot AvailableStart: 12-24-2023 End: 58-17-6602Iobpor outpatient visit 15 minutesCamille QUEEN Work Phone: [facility] BCP OBComment on above:Second trimester ; Diabetes mellitus screeningStart: 12-24-2023 End: 02-08-8252wqiaoyehldLYB CHELSEANot AvailableStart: 11-25-2023 End: 22-24-1484pctkwvktjyUKWIT FAZIONot AvailableStart: 10-23-2023 End: 06-52-5591odzpehyxesYWRNO FAZIONot AvailableStart: 11-21-2022 End: 07-92-9516bwygqsnflqEuawhwdxn Breault Other [facility] SeoPult Other Start: 28-53-3260Trnivx outpatient visit 25 minutes Christiane BernsteinFPMarilee [facility] Art Procedures DateProcedureProcedure DetailPerforming ClinicianStart: 81-18-1818EC OB GROWTH Cora Angélica DO Work Phone: Start: 38-13-5565PZ OB CERVICAL LENGTHAmy Chelsea QUEEN Work Phone: Start: 46-66-6984KU OB PLACENTAAmy Chelsea QUEEN Work Phone: Start: 85-94-0441ZI OB ANATOMYCorey Angélica DO Work Phone: Start: 66-57-5605ML OB CERVICAL LENGTHCorey Angélica DO Work Phone: Start: 23-37-1010Yyvot dip stick/tablet rgnt non-auto w/o micrscpAmy Chelsea QUEEN Work Phone: None (qualifier value)Carlos LEVIN Plan of Treatment DateCare ActivityDetailAuthorStart: 10-04-2025 End: 64-15-6953Lesrnlc encounter /18/2025 11:40 AM EST Routine [facility] [address] [place] [id number] Cora Lindsay, DO [address] [place] [address] [facility] OBGYNStart: 07-18-2025 Influenza vaccinationInfluenza Vaccine (#1)[facility] HealthcareStart: 07-18-2024 Influenza vaccinationInfluenza Vaccine (#1)[facility] HealthcareStart: 01-21-2024 End: 81-39-6196Zxyondq encounter bvdkparqb16/06/2024 10:40 AM EST Routine [facility] [address] [place] [phone] Cora Lindsay, DO [address] [place] [address] [facility] BCP OBStart: 01-21-2024 End: 46-78-4480Oelpiyzgsztx / ancillary services ibskderkmd79/06/2024 9:30 AM EST Ancillary Procedure [facility] [address] [place] [phone] [facility] BCP OBStart: 12-24-2023 End: 76-23-3658WCX panel - Blood by Automated countCBC Lab Routine Diabetes mellitus screening Expected: 12/24/2023 (Approximate), Expires: 12/24/2024[facility] Work Phone: comment on above:Expected: 12/24/2023 (Approximate), Expires: 12/24/2024Start: 12-24-2023 End: 15-02-7957Lzeabuayypc of glucose 1 hour after glucose challenge for glucose tolerance testGlucose tolerance, 1 hour Lab Routine Diabetes mellitus screening Expected: 12/24/2023 (Approximate), Expires: 12/24/2024NO[facility] HealthcareComment on above:Expected: 12/24/2023 (Approximate), Expires: 12/24/2024Start: 36-02-2698Taevntgic vaccinationInfluenza Vaccine (#1)[facility] Immunizations Immunization DateImmunizationNotesCare FiccbfriVowzotut00-56-1683NYVR-TnI-2 (COVID-19) mRNA BNT-162b2 vaxMichael NILL [phone]-BgumtKindred Healthcare04-01-2021 SARS-CoV-2 (COVID-19) mRNA BNT-162b2 vaxMichael NILL [phone]-QdnoyKindred Healthcare Payers DatePayer CategoryPayerPolicy ID2023Medicaid [id number] [id number] 2..1.493804.3.57[id number] 2..1.263142.3.57[id number] 2.0.1.712058.3.57[id number] 2.0.1.135872.3.57[id number] 2.840.1.276458.3.57[id number] 2..1.890853.3.57[id number] 2.840.1.578710.3.57[id number] 2.0.1.688458.3.57[id number] 2..840.1.508894.3.57[id number] 2..840.1.979615.3.57[id number] 2..840.1.211068.3.57[id number] 2..840.1.357277.3.57[id number] 2..840.1.697896.3.579.[id number] 2..840.1.391882.3.57[id number] 2..840.1.329200.3.57[id number] 2..840.1.288465.3.57[id number] 2..840.1.876410.3.579.2.1286Self-paySelf Pay [id number] Social History DateTypeDetailFacilitySex Assigned At [facility] HospitalTobacco smoking status NHISTobacco smoking consumption unknownHIGHLAND RIDGE [facility] HealthcareStart: 74-29-4477QyepybfzyPSMQ HealthcareStart: 29-84-7576Ipx Assigned At BirthNot on fileHIGHLAND RIDGE HOSPITAL HealthcareStart: 25-15-6223Shs Assigned At BirthFeMemorial Hospitaltart: 39-21-9310Ktsvusc smoking statusNever smoked tobacco (finding)[facility] BellevueStart: 21-15-1093Eegzzbm smoking statusNeverMain Campus Medical Center [place] Functional Status SgniVictmjigvkDaelwnVqmghhyg81-72-0761Nzebojobzb StatusN/AFSalem City Hospital [facility] [place] History of Present illness Narrative 07-15-2024 Note Date & IzijAirmGdndbouz64-89-1839 History of Present illness Narrative* Shiela Hou, LICENSED LOAN OFFICER - 07/15/2024 10:30 AM EDT Reason for Appointment: Patient ID: Shadi Wheat is a 28 y.o. female who presents for Care Patient presents today for Post Follow Up appointment. MEDICATIONS No current outpatient medications ALLERGIES No Known Allergies PROBLEMS Active Ambulatory Problems Diagnosis Date Noted No Active Ambulatory Problems Resolved Ambulatory Problems Diagnosis Date Noted No Resolved Ambulatory Problems No Additional Past Medical History HISTORY PAST MEDICAL HISTORY SOCIAL HISTORY History reviewed. No pertinent past medical history. Social History Tobacco Use Smoking status: Not on file Smokeless tobacco: Not on file Substance Use Topics Alcohol use: Not on file Drug use: Not on file FAMILY HISTORY No family history on file. SURGICAL HISTORY History reviewed. No pertinent surgical history. REVIEW OF SYSTEMS Review of Systems: Review of Systems All other systems reviewed and are negative. OBJECTIVE Objective: Physical Exam Constitutional: Appearance: Normal appearance. She is well-developed. Cardiovascular: Rate and Rhythm: Normal rate and regular rhythm. Pulmonary: Effort: Pulmonary effort is normal. Breath sounds: Normal breath sounds. Abdominal: General: Bowel sounds are normal. There is no distension. Palpations: Abdomen is soft. Tenderness: There is no abdominal tenderness. There is no guarding or rebound. Musculoskeletal: General: No swelling. Normal range of motion. Right lower leg: No edema. Left lower leg: No edema. Neurological: Mental Status: She is alert and oriented to person, place, and time. Skin: General: Skin is warm and dry. Psychiatric: Mood and Affect: Mood normal. Behavior: Behavior normal. Vitals and nursing note reviewed. Exam conducted with a cement fittings maker present. Vitals: Estimated body mass index is 25.93 kg/m as calculated from the following: Height as of 05/24/24: 5' 5 . Weight as of this encounter: 155 lb 12.8 oz. BP: 118/76 Patient's last menstrual period was 08/10/2023. ASSESSMENT & PLAN ICD-10-CM 1. 6 weeks follow-up Z39.2 Post Follow Up: Patient is doing well but has complaints of vaginal bleeding and odor. Patient presents today for 6week visit. Patient is s/p Vaginal delivery. Patient states depression but denies suicidal and homicidal ideations. All options were discussed with the patient regarding control and patient desires oral contraception . Patient is advised we will provide sample of Slynd. Patient wasgiven Antibiotic while Cultures are sent out. Follow Up: Patient is to return for annual unless needed otherwise. Documented by Shiela Hou LPN on behalf of: Camille Tran PA-C documented [facility] 06-30-2024 Note Date & SsuzOjkqUtdstsga47-45-0526 NoteGeneral Surgery Office/Clinic Note Chief Complaint consultation for hemorrhoids HPI Staff 28 year old female presents on consultation from Dr. Lindsay for hemorrhoids. Reports long standing history of hemorrhoids. Verbalized hemorrhoids will prolapse from rectum creating pain. Prolapse willlast for several days then spontaneously resolve. During recent , reports hemorrhoids weremore problematic. Since delivery, she has not experienced any issues with hemorrhoids. History of Present Illness 28 yo female 7 weeks , with h/o grade 2/3 internal hemorrhoids during ; reports thrombosed hemorrhoids after delivery, [facility] now denies pain or bleeding; no prolapse with bms; some residual tissue externally, but no pain or irritation. Review of Systems PHQ Score Initial Depression Screen Score: 0 SCORE ROS - Provider Constitutional: no fever, no sweats, no weight loss. Eyes: no glasses, no blurred vision, no visual loss. ENMT: no dentures, no hoarseness, no swallowing difficulties, no hearing loss, no ear infection(s),no nose bleeds. Cardiovascular: normal blood pressure, no chest pain, regular heartbeat, no heart murmur. Respiratory: no shortness of breath, no cough, no asthma, no wheezing. Gastrointestinal: no nausea, no vomiting, no diarrhea, no constipation, no blood in stool, no change in bowel habits, no abdominal pain, no hepatitis. Genitourinary: no kidney stones, no urine infection, no dysuria. Musculoskeletal: no pain, no weakness. Skin: no changing moles, no rash, no skin lumps. Neurologic: no seizures, no epilepsy, no headache. Psychiatric: no emotional or psychiatric problem. Heme/Lymph: no bleeding problems, no anemia, no blood clots, no transfusions. Allergy/Immunologic: no swollen lymph nodes/glands, no IV drug abuse. Other: Additional ROS info: Except as noted in the above Review of Systems and in the History of Present Illness, all other systems have been reviewed and are negative or noncontributory. Physical Exam Vitals & Measurements HR: 72(Peripheral) RR: 16 BP: 112/74 HT: 65 in HT: 165 cm WT: 70 kg WT: 154 lb BMI: 25.71 rectal: no perianal irritation or erythema, no bleeding or skin tags; no masses; bilateral residualanal skin tags, no external hemorrhoids. Assessment/Plan 1. Anorectal skin tags (K64.4: Residual hemorrhoidal skin tags) keep area clean and dry; use wet wipes to avoid irritation; no evidence of residual hemorrhoidal disease; call with problems/questions. Follow-up No qualifying data available Problem List/Past Medical History Ongoing Anorectal skin tags Historical No qualifying data Procedure/Surgical History None. Medications No active medications Allergies No Known Allergies No Known Medication Allergies Social History Alcohol - Denies Alcohol Use, 06/30/2024 Substance Abuse - Denies Substance Abuse, 06/30/2024 Tobacco Never (less than 100 in lifetime) Tobacco Use:. Never Smokeless Tobacco Use:., 06/30/2024 Family History Drug addiction: Father. Hypertension: Mother. Immunizations Vaccine Date Status SARS-CoV-2 (COVID-19) mRNA BNT-162b2 vax 03/08/2021 Recorded SARS-CoV-2 (COVID-19) mRNA BNT-162b2 vax 02/15/2021 RecordedTwin City HospitalComment on above:Result Comment: Electronically Signed By: OLLIE STRONG, Carlos Christine\Date and Time Signed: 06/30/24 15:54 EDT History of Present illness Narrative 12-24-2023 Note Date & ShotMezlAcbfswyl78-01-6771 History of Present illness Narrative* BERNICE Navarro - 12/24/2023 9:30 AM EST Reason for Appointment: Patient ID: Shadi Wheat [...] behalf of: BERNICE Navarro documented in this encounterNorth [facility] Hospital Evaluation note 11-21-2022 Note Date & ZdsnBjyqXfphairk86-78-9436 Evaluation note* Encounter Date Diagnosis Assessment Notes Treatment Notes Treatment Clinical Notes Nov, Contact with and (fermin spected) exposure to other viral communicable diseases (ICD-10 - Z20.828) Nov,Left acute otitis media (ICD-10 - H66.92)Ear infections are often a secondary infection caused from an URI, the flu or allergies. Take medication as directed. Complete all doses, even if you feel better. Tylenol or ibuprofen can help with pain. Warm pack to area for comfort helps as well. Follow up with primary care provider if no improvement of symptoms. Nov,ronchitis (ICD-10 - J40)Take medications as directed. Rest and increase fluid [...] weeks for the cough to go away [employer] Other Evaluation + Plan note Note Date & TypeNoteFacilityEvaluation + Plan note No data available for this section [facility] Evaluation note Note Date & TypeNoteFacilityEvaluation note* Diagnosis Second trimester state, incidental Diabetes mellitus screening Screening for diabetes mellitus documented in this encounter [facility] Evaluation note Note Date & TypeNoteFacilityEvaluation note* Diagnosis Onset Date Resolution Status Yeast infection [facility] Work Phone: Evaluation note Note Date & TypeNoteFacilityEvaluation note* Diagnosis 6 weeks follow-up BV (bacterial vaginosis) Unspecified vaginitis and vulvovaginitis documented in this encounter [facility] Hospital Discharge instructions Note Date & TypeNoteFacilityHospital Discharge instructions No data available for this section [facility] Progress note Note Date & TypeNoteFacilityProgress note No data available for this section [facility] [place] Chief Complaint and Reason for Visit Chief Complaint Yeast infection Reason for Visit Yeast infection Advance Directives No Advanced Directives Records Found Advance Directive Response Recorded Date/ Time Advance Directives No January 17 6:56pm Summary Purpose Family History No Family History Records Found Additional Source Comments REASON FOR VISIT (unrecogniz ed section and content) ReasonCommentsRoutine VisitReasonCommentsPostpartum Care Care Teams (unrecognized sec tion and content) Team Status: Active Member Role Status Dates PHYSICIAN NO FAMILY Primary Care Provider Active Team Status: Inactive Member Role Status Dates PHYSICIAN NO FAMILY Primary Care Provider Active Start: April 23, 2024 End: April 23Mary Garcia ProviderActiveStart: April 23, 2024 End: April 23, 2024 Goals (unrecognized section and content) Goals may be documented in a n alternate section INFORMATION SOURCE (unrecogn ized section and content) DATE CREATED AUTHOR 05/31/2024 [facility] DATE CREATED AUTHOR AUTHOR'S ORGANIZ ATION 06/30/2024 [facility] DATE CREATED AUTHOR AUTHOR'S ORGANIZ ATION 09/18/2025 [facility] FOR RECORDS PERTAINING TO PATIENTS WHO [...] ON THE PRIMARY CLINICAL RECORDS. [facility] [employer]. provides no warranty or guarantee of the accuracy or completeness of information in this document.
[2025-11-15 10:31] LABS: Hematocrit 39.4 % (36.0-48.0); Hemoglobin 13.2 g/dL (12.0-16.0); Immature Granulocytes Abs Auto 0.00 10^3/uL (0.00-0.03); Immature Granulocytes Pct Auto 0.0 % (0.0-0.5); Lymphocytes Absolute Auto 1.8 10^3/uL (1.2-3.8); Mean Corpuscular HGB Conc 33.5 g/dL (29.9-35.2); Mean Corpuscular Hemoglobin 30.8 pg (26.7-34.0); Mean Corpuscular Volume 91.8 fL (81.0-99.0); Platelet Count 288 10^3/uL (150-450); Red Blood Count 4.29 10^6/uL (4.20-5.40); White Blood Count 4.0 10^3/uL (4.0-11.0)
[2025-11-15 11:03] LABS: TSH W/ REFLEX FT4 0.872 uIU/mL (0.358-3.740)
[2025-11-15 11:05] LABS: Iron 78.0 ug/dL (50.0-170.0); Percent Iron Saturation 23.9 %; Total Iron Binding Capacity 327.0 ug/dL (250.0-450.0)
[2025-11-15 11:35] LABS: Ferritin 41.0 ng/mL (8.0-252.0)
[2025-11-16 04:07] LABS: Vitamin B12 552 pg/mL (232-1245)
== END 2025-11-15 10:00 | disposition home or self-care (01) ==
LOC: LAB 10:02
PROVIDERS: PCP Nurse Practitioner Family; Visit Provider Nurse Practitioner Family
DX: R53.83 Other fatigue (principal); Z86.2 Personal history of diseases of the blood and blood-forming organs and certain disorders involving the immune mechanism; R23.3 Spontaneous ecchymoses
CPT/HCPCS: 36415; 82306; 82607; 82728; 83540; 83550; 84443; 85025